=== PATIENT | female | born 1950 | race Caucasian/White ===

== ENCOUNTER 2021-03-03 15:15 | Outpatient (CLI) | payer MEDICARE, OTHER, SELFPAY ==
--- NOTE | 2021-03-03 15:53 | CT_ITS ---
WS: [id number] CT LUMBAR SPINE, noncontrast. HISTORY: PARESTHESIA, WEAKNESS, SYNCOPE TECHNIQUE: Contiguous 2.5 mm axial imaging are performed. Sagittal and coronal reformats are submitte d and reviewed. All CT scans at [facility] use at least one of these dose optimization techni ques: automated exposure control; mA and/or kV adjustment per patient size (includes targeted exams w here dose is matched to clinical indication); or iterative reconstruction. IV contrast: None DLP: 1933.14 mGycm COMPARISON: None available. Posterior lumbar alignment is normal. No fractures. Pedicles are intact. Small hypertrophic osteophyt es along the endplates. L1-2: Mild annular disc bulge with no stenosis. L2-3: Moderate annular disc bulging with mild facet joint arthritis. No stenosis. L3-4: Mild annular disc bulging with encroachment upon the ventral thecal sac and mild facet arthriti s. No high-grade stenosis. L4-5: Mild annular disc bulging with encroachment upon the ventral thecal sac. Mild ligamentum flavum hypertrophy with moderate bilateral facet joint arthritis. Mild central and bilateral subarticular r ecess encroachment. L5-S1: Mild annular disc bulge with a focal central disc protrusion. Disc is contacting the S1 nerve roots bilaterally but no displacement. Mild bilateral subarticular recess stenosis. No foraminal sten osis. 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 CT/CT lumbar spine wo con* [id number] IMPRESSION: 1. No high-grade central or foraminal stenosis. 2. No lumbar spine fracture. 3. Mild encroachment upon the S1 nerve roots bilaterally by disc disease. 4. Mild central and bilateral subarticular recess encroachment at L4-5. 5. Moderate facet joint arthritis at L4-5 with mild at L2-3 and L3-4.
--- NOTE | 2021-03-03 15:53 | CT_ITS ---
WS: [id number] CT CERVICAL SPINE HISTORY: PARESTHESIA, WEAKNESS, SYNCOPE TECHNIQUE: Contiguous 2.5 mm axial imaging performed through the entire cervical spine. Sagittal and coronal reformats also performed. All CT scans at [facility] use at least one of these dose o ptimization techniques: automated exposure control; mA and/or kV adjustment per patient size (include s targeted exams where dose is matched to clinical indication); or iterative reconstruction. DLP: 1293.64 mGycm COMPARISON: None available. Posterior cervical alignment is normal. No fractures or marrow edema. Very mild disc space narrowing at C5-6 with osteophytes extending anterior and posterior from the vertebral bodies. Facet joints are moderately narrowed throughout. C2-C3: Mild osteophytic ridging with no stenosis. Moderate facet joint arthritis. C3-C4: Very minimal central disc protrusion. Moderate bilateral facet joint arthritis. Very mild fora tracy narrowing. C4-C5: Very shallow central disc protrusion. Moderate to severe RIGHT and mild LEFT facet joint arthr itis. Moderate RIGHT foraminal stenosis. C5-C6: Diffuse osteophytic ridging with mild encroachment into the foramina. Moderate bilateral facet joint arthritis. Mild foraminal stenosis. C6-C7: RIGHT proximal foraminal osteophytes causing mild encroachment into the foramina. No high-grad e stenosis. Mild facet joint arthritis. C7-T1: Mild facet joint arthritis. No stenosis. Soft tissues are normal. Lung apices are clear. CT/CT cervical spin wo con* [id number] IMPRESSION: 1. No severe high-grade stenosis or fracture of cervical spine. 2. Multilevel mild to moderate facet joint arthritis. 3. Moderate RIGHT foraminal stenosis at C4-5. Moderate to severe RIGHT and mil d LEFT facet joint arthritis at C4-5. 4. Moderate bilateral facet joint arthritis at C3-4 and C5-6.
--- NOTE | 2021-03-03 15:53 | CT_ITS ---
WS: [id number] CT CHEST WITHOUT INTRAVENOUS CONTRAST HISTORY: PARESTHESIA, WEAKNESS, SYNCOPE TECHNIQUE: Contiguous 5 mm axial imaging performed on the thorax. Coronal and sagittal reformats are submitted. All CT scans at [facility] use at least one of these dose optimization techniques: automated exposure control; mA and/or kV adjustment per patient size (includes targeted exams where dose is matched to clinical indication); or iterative reconstruction. CONTRAST: None DLP: 639.28 mGycm COMPARISON: None available. Lungs and central airway: Marked pulmonary hyperexpansion. Focal area of subtle groundglass attenuati on measuring 1.6 cm RIGHT upper lobe. Bronchial wall thickening with bronchiectasis along the medial inferior RIGHT upper lobe. There is additional mild scar formation in the RIGHT middle lobe and lingu la. Pleura: Normal. No pleural effusion. Heart and pericardium: Mild enlargement of the heart. No effusion. Mediastinum and eduardo: On this unenhanced examination no enlarged lymph nodes are identified. There ar e a few scattered lymph nodes with the largest measuring 7 mm along the inferior RIGHT paratracheal l ocation. Vessels: Mild atherosclerosis aorta. Pulmonary artery size is slightly enlarged. Chest wall and lower neck: No soft tissue masses. Upper abdomen: A few scattered granulomata within the spleen. No adrenal mass. Osseous structures: Mild increase in thoracic kyphosis. Mild anterior wedging of T8. No destructive b one lesions. CT/CT chest wo con [id number] IMPRESSION: 1. Marked pulmonary hypertension and emphysema. 2. RIGHT upper lobe focal 1.6 cm area of groundglass attenuation. Very nonspec ific but may represent early adenocarcinoma variant. Recommend follow-up chest CT in 6-12 months. 3. Additional bronchiectasis and bronchial wall thickening medial RIGHT upper lobe. 4. Mild atherosclerosis aorta and mild pulmonary hypertension.
== END 2021-03-03 15:16 | disposition home or self-care (01) ==
PROVIDERS: Visit Provider Family Medicine
DX: R20.9 Unspecified disturbances of skin sensation (principal); R53.1 Weakness; R55 Syncope and collapse; M47.816 Spondylosis without myelopathy or radiculopathy, lumbar region; I27.20 Pulmonary hypertension, unspecified; J43.9 Emphysema, unspecified; J47.9 Bronchiectasis, uncomplicated; I70.0 Atherosclerosis of aorta; M47.812 Spondylosis without myelopathy or radiculopathy, cervical region; M48.02 Spinal stenosis, cervical region
CPT/HCPCS: 71250; 72125; 72131

== ENCOUNTER 2021-04-22 09:17 | Outpatient (CLI) | payer MEDICARE, OTHER, SELFPAY ==
--- NOTE | 2021-04-22 09:30 | MR_ITS ---
WS: [id number] MRI HEAD WITH CONTRAST TECHNIQUE: Sagittal T1, T2 axial, T2 axial FLAIR, axial susceptibility weighted imaging, axial diffus ion weighted images, and coronal T2 images were obtained. Pre and post-T1 axial and post T1 coronal i mages. ADC and FSPGR images. CLINICAL INFORMATION: HEADACHE, UNSPECIFIED; LIGHTHEADEDNESS; SYNCOPE COMPARISON: CT 2009 FINDINGS: No evidence of restricted diffusion to suggest acute ischemia. Ventricular system and basal cisterns are patent. Moderate patchy supratentorial white matter changes compatible with small vessel disease in a patient this age. Mild parenchymal volume loss. Normal posterior fossa. Normal vascular flow voids at the skull base. No extra-axial fluid collection s. No evidence of mass or mass effect. Paranasal sinuses and mastoid air cells are well aerated. No h emosiderin on the susceptibly weighted images. Normal optic chiasm and pituitary infundibulum. Mild s ymmetric atrophy temporal lobes and hippocampal formations. No abnormal intracranial enhancement. Normal dural venous sinuses. MR/MR head wo/w con [id number] IMPRESSION: 1. No evidence of restricted diffusion to suggest acute ischemia. 2. Moderate small vessel changes with mild parenchymal volume loss. 3. Normal optic chiasm and pituitary infundibulum. 4. No hemosiderin on susceptibly weighted images. 5. No abnormal intracranial enhancement. 6. No other significant findings.
[2021-04-22] MEDS: gadobenate dimeglumine 20 mL vial IV (10:39)
== END 2021-04-22 09:18 | disposition home or self-care (01) ==
PROVIDERS: Visit Provider Family Medicine
DX: R51.9 Headache, unspecified (principal); R42 Dizziness and giddiness; R55 Syncope and collapse
CPT/HCPCS: 70553; A9577

== ENCOUNTER 2021-05-15 14:33 | Outpatient (CLI) | payer MEDICARE, OTHER, SELFPAY ==
--- NOTE | 2021-05-15 14:41 | USCV_ITS ---
Keira Ayon Age: 70 Gender: F : 1950 Exam Date: 05/15/2021 15:06 Ordering Phys: Abhinav Ac MD Technologist: JOSE Exam Location: [facility] [place] Indication: pulmonary hypertension/ syncope BP: / HR: Rhythm: Sinus Technical Quality: Adequate MEASUREMENTS (Male / Female) Normal Values FINDINGS Left Ventricle Normal left ventricular size and systolic function, EF 59%.no regional wall motion abnormalities. Mild left ventricular hypertrophy. Right Ventricle The right ventricle is normal in size and function. Right Atrium Mildly increased right atrial size. Left Atrium Mildly increased left atrial size. Mitral Valve Thickened mitral valve. Mild mitral valve regurgitation. Aortic Valve Thickened aortic valve. Trace aortic valve regurgitation. Tricuspid Valve Estimated pulmonary artery peak systolic pressure 35 mmHg.mild- to-moderate tricuspid valve regurgitation. Pulmonic Valve Trace pulmonary valve regurgitation. Pericardium No pericardial effusion. Aorta Normal ascending aorta dimension. CONCLUSIONS Normal left ventricular size and systolic function, EF 59%.no regional wall motion abnormalities. Mild left ventricular hypertrophy. Mild biatrial enlargement. Thickened mitral valve with mild mitral regurgitation Thickened aortic valve with a trace of aortic regurgitation Mild to moderate tricuspid regurgitation Estimated pulmonary artery peak systolic pressure 35 mmHg. Trace pulmonary valve regurgitation. There is no pericardial effusion. There are no intracardiac masses. No previous study is available for comparison. Dr Jc Esquivel MD FAC (Electronically Signed) Final Date: 15 May 2021 20:56 S
== END 2021-05-15 14:34 | disposition home or self-care (01) ==
PROVIDERS: Visit Provider Family Medicine
DX: R55 Syncope and collapse (principal); I27.20 Pulmonary hypertension, unspecified; I08.3 Combined rheumatic disorders of mitral, aortic and tricuspid valves
CPT/HCPCS: 93306

== ENCOUNTER → 2021-06-19 13:22 | Outpatient (BNVA) | payer MEDICARE, OTHER, SELFPAY | PROVIDERS: Visit Provider Family Medicine | DX: Z20.822 Contact with and (suspected) exposure to COVID-19 (principal); Z01.818 Encounter for other preprocedural examination | CPT/HCPCS: 87635 ==

== ENCOUNTER 2021-06-24 13:02 | Outpatient (CLI) | payer MEDICARE, OTHER, SELFPAY ==
--- NOTE | 2021-06-24 13:52 | PFTS_ITS ---
Date of Study:06/24/21 Date of Dictation:02/2022 MECHANICS: Prebronchodilator forced vital capacity (FVC) is normal. Prebronchodilator forced expiratory volume in one second (FEV1) is normal FEV1/FVC is reduced. There is no prebronchodilator study. FLOW VOLUME LOOP: Normal. LUNG VOLUMES: Total lung capacity (TLC) is normal. Residual volume (RV) is normal. DIFFUSING CAPACITY FOR CARBON MONOXIDE: Mildly reduced 69% . INTERPRETATION: The prebronchodilator spirometry is consistent with mild obstruction.? Lung volumes are normal.? Gas transfer is mildly reduced.? Reduced FEV1/FVC with normal FEV1 and mildly ranges gas transfer suggestive of obstructive ventilatory disease mild COPD. correlate clinically. MTDD
== END 2021-06-24 13:03 | disposition home or self-care (01) ==
PROVIDERS: Visit Provider Family Medicine
DX: R91.8 Other nonspecific abnormal finding of lung field (principal)
CPT/HCPCS: 94010; 94726; 94729

== ENCOUNTER 2021-07-31 14:54 | Outpatient (CLI) | payer MEDICARE, OTHER, SELFPAY ==
--- NOTE | 2021-07-31 15:03 | USCV_ITS ---
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 Dr Jc Esquivel MD FACC (Electronically Signed) Final Date: 01 August 2021 00:07 S
== END 2021-07-31 14:55 | disposition home or self-care (01) ==
PROVIDERS: Visit Provider Family Medicine
DX: I73.9 Peripheral vascular disease, unspecified (principal)
CPT/HCPCS: 93922

== ENCOUNTER → 2021-10-08 13:29 | Outpatient (BNVA) | payer MEDICARE, OTHER, SELFPAY | PROVIDERS: PCP Family Medicine; Referring Provider Family Medicine; Visit Provider Specialist | DX: G56.03 Carpal tunnel syndrome, bilateral upper limbs (principal); G56.23 Lesion of ulnar nerve, bilateral upper limbs; G62.89 Other specified polyneuropathies | CPT/HCPCS: 95913 ==

== ENCOUNTER → 2021-11-13 11:12 | Outpatient (BNVA) | payer MEDICARE, OTHER, SELFPAY | PROVIDERS: PCP Family Medicine; Referring Provider Family Medicine; Visit Provider Specialist | DX: G62.89 Other specified polyneuropathies (principal); R94.6 Abnormal results of thyroid function studies; R53.1 Weakness; G56.03 Carpal tunnel syndrome, bilateral upper limbs; G56.23 Lesion of ulnar nerve, bilateral upper limbs; I95.1 Orthostatic hypotension | CPT/HCPCS: 36415; 82607; 84436; 84443; 86334; 95861; 99204; 99205 ==

== ENCOUNTER 2021-12-05 16:24 | Outpatient (CLI) | payer MEDICARE, OTHER, SELFPAY ==
--- NOTE | 2021-12-05 16:30 | US_ITS ---
WS: [id number] THYROID ULTRASOUND HISTORY: ? Thyroiditis. COMPARISON: None available. Right lobe: 1.9 cm x 2.4 cm x 4.7 cm (w x ap x l). Volume: 11.6 cm3. Moderately enlarged very heterogeneous lobulated thyroid gland. There are a few scattered cystic nodu les. The largest in the mid gland measures 1.1 x 0.9 x 1.1 cm. There is diffuse increased vascularity throughout the gland. No echogenic foci. No adjacent lymph nodes. Left lobe: 1.6 cm x 2.3 cm x 4.2 cm (w x ap x l). Volume: 7.9 cm3. Moderately enlarged very heterogeneous lobulated gland. There is diffuse increased vascularity. No no dule. No adjacent lymph nodes. Isthmus: 0.3 cm. US/US thyroid [id number] IMPRESSION: 1. Enlarged heterogeneous gland with increased vascularity. Suspect thyroiditi s based upon increased vascularity. 2. There is no dominant suspicious nodule to be targeted for biopsy at this [place].
== END 2021-12-05 16:25 | disposition home or self-care (01) ==
PROVIDERS: PCP Family Medicine; Visit Provider Family Medicine
DX: E06.9 Thyroiditis, unspecified (principal); E03.9 Hypothyroidism, unspecified
CPT/HCPCS: 76536; 84432; 84439; 84443; 84481; 86140; 86800

== ENCOUNTER 2021-12-26 14:09 | Inpatient (IN) | payer MEDICARE, OTHER, SELFPAY ==
[2021-12-26] VITALS (9 sets, daily range): BP systolic 63–143; BP diastolic 47–88; PULSE 57–107; RESP 16–17; TEMP 36.6–36.9; O2SAT 92–95; BMI 20.3
--- NOTE | 2021-12-26 14:17 | W.ED.SYNCOPE ---
HPI - Syncope General: Chief Complaint: Syncope Stated Complaint: SYNCOPAL EPISODE/ HYPOTENSION Time Seen by Provider: 12/26/21 14:17 Source: patient Mode of arrival: EMS Limitations: no limitations History of Present Illness: 71-year-old female presents emergency room via EMS after near syncopal episode. Patient reports she has had these episodes multiple times in the past. She has a known history of chronic anemia peripheral neuropathy and acquired hypothyroidism. She is currently being treated. She is on midodrine for recurrent orthostasis. She had a TSH that was 259 for which she was started on 50 mcg of levothyroxine. She today she had gotten up from bed and then stood and started walking to answer her door. She medialmost with the door got very lightheaded and dizzy and sat down at a table. She said after several minutes her symptoms resolved. She is asymptomatic now and she is feeling much better. She denies any chest pain abdominal pain shortness of breath no dysuria urgency or frequency. MD complaint: felt faint and almost passed out Onset (ago): minute(s) Prodromal symptoms: lightheaded Witnessed: No Context: getting out of bed and standing up Injuries sustained associated with event: none Associated symptoms: Reports lightheadedness; Deny abdominal pain, chest pain, fever(s), headache(s), nausea, short of breath, vertigo or weakness Treatments prior to arrival: none Review of Systems Const: Denies: fever(s), chills, fatigue or malaise ENMT: Denies: throat pain, ear or mastoid pain, nasal discharge or nasal congestion Card: Reports: lightheadedness; Denies: chest pain Resp: Denies: dyspnea, productive cough or non-productive cough GI: Denies: abdominal pain or nausea : Denies: flank pain, difficulty voiding, dysuria, urinary frequency or urinary urgency Skin/Breast: Denies: rash or pruritus Neuro: Denies: headache(s) or vertigo PFSH ED PFSH: Medical History Achalasia Carpal tunnel syndrome, bilateral upper limbs Depression Hypothyroidism (acquired) Lung nodule Numbness and tingling Orthostatic hypotension Peripheral neuropathy Ulnar neuropathy of both upper extremities Surgical History History of tonsillectomy Family History Other CAD (coronary artery disease) Social History Smoking and tobacco status: never smoked Alcohol intake: never History of recent travel: No Physical Exam Const: GENERAL APPEARANCE: cooperative and comfortable ORIENTATION/CONSCIOUSNESS: Yes awake, Yes oriented to person, Yes oriented to place and Yes oriented to time HENMT: COMMON NORMALS: normocephalic, atraumatic and hearing grossly normal bilaterally HEAD & SCALP: normocephalic and atraumatic Resp: COMMON NORMALS: normal respiratory effort, No retractions, No use of accessory muscles and clear to auscultation bilaterally AUSCULTATION: clear to auscultation bilaterally Cardio: COMMON NORMALS: regular rate, regular rhythm and No murmurs present (Cardio) RATE: regular rate RHYTHM: regular rhythm GI: COMMON NORMALS: Soft to palpation and No hepatosplenomegaly present AUSCULTATION: Yes normoactive bowel sounds PALPATION: Yes Soft to palpation, No Tenderness to palpation present (GI), No Guarding due to palpation present (GI) and Yes No hepatosplenomegaly present Extremity: COMMON NORMALS: normal to inspection, capillary refill normal, no clubbing, cyanosis or edema, no calf tenderness and no pedal edema Neuro: SENSORIUM/ORIENTATION: Yes oriented to person, Yes oriented to place and Yes oriented to time Skin: COMMON NORMALS: no rashes or lesions noted GENERAL SKIN EXAM: no rashes or lesions noted Course Vital Signs: Vital signs: Vital Signs Temperature 98.1 F 12/30/21 16:25 Pulse Rate 53 L 12/30/21 16:25 Respiratory Rate 16 12/30/21 16:25 Blood Pressure 158/89 12/30/21 16:25 Pulse Oximetry 97 12/30/21 16:25 Oxygen Delivery Me thod 12/30/21 12:00 Oxygen Flow Rate 3 12/30/21 12:00 MDM - Syncope Medical Decision Making Severe symptomatic orthostatic hypotension she goes from blood pressure 136/80 to 63/47 with no change in pulse was going from lying to standing. This was after she was given fluids. She is no longer taking the midodrine. Discussed with hospitalist will place on observation. Medical Records I reviewed the patient's medical records. Lab Data I reviewed the patient's lab results. : 12/30/21 02:06 12/30/21 02:06 Radiology Impressions Chest X-Ray 12/28/21 08:20 IMPRESSION: Minimal left basilar atelectasis. No confluent infiltrates in the lungs. Chest CTA 12/28/21 12:13 IMPRESSION: 1. Comparison CT 03/03/2021. 2. No acute PE. 3. Mild cardiomegaly with coronary calcification. Probable passive hepatic congestion/right heart-tricuspid dysfunction as above. 4. Infrahilar/posterior basilar bilateral consolidations and small pleural effusions. Several new ill-defined non round ground-glass opacities are also present as described.Imaging features can be seen with COVID-19 pneumonia, though are nonspecific and can occur with a variety of infectious and noninfectious processes. (Reference: Derian) 5. Mild nonspecific right hilar adenopathy. This may be reactive. REFERENCES: Derian Marion, et al., Radiological Society of [place] Expert Consensus Statement on Reporting Chest CT Findings Related to COVID-19. Endorsed by the Society of Thoracic Radiology, the [employer], and RSNA. Published July 12, 2019. Laboratory Results WBC 7.1 10^3/uL (4.0-10.0) 12/27/21 04:20 RBC 3.18 10^6/uL (4.1-5.3) L 12/27/21 04:20 Hgb 10.3 g/dL (11.5-15.3) L 12/27/21 04:20 Hct 31.5 % (37.0-47.0) L 12/27/21 04:20 MCV 99.1 fl (81-99) H 12/27/21 04:20 MCH 32.4 pg (28.0-34.0) 12/27/21 04:20 MCHC 32.7 g/dL (30.0-36.0) 12/27/21 04:20 RDW 13.8 % (12.1-15.1) 12/27/21 04:20 Plt Count 112 10^3/cmm (130-400) L 12/27/21 04:20 MPV 10.3 fL (7.4-10.4) 12/27/21 04:20 Neut % (Auto) 89.7 % 12/27/21 04:20 Lymph % (Auto) 6.2 % 12/27/21 04:20 [place] % (Auto) 3.4 % 12/27/21 04:20 Eos % (Auto) 0.0 % 12/27/21 04:20 Baso % (Auto) 0.1 % 12/27/21 04:20 Neut # (Auto) 6.38 10^3/uL (1.8-7.7) 12/27/21 04:20 Lymph # (Auto) 0.4 10^3/uL (0.8-4.8) L 12/27/21 04:20 [place] # (Auto) 0.2 10^3/uL (0.2-0.9) 12/27/21 04:20 Eos # (Auto) 0.0 10^3/uL (0.0-0.8) 12/27/21 04:20 Baso # (Auto) 0.0 10^3/uL (0.0-0.1) 12/27/21 04:20 Nucleated RBC % (auto) 0 % 12/27/21 04:20 Nucleated RBCs # 0.0 /100WBC 12/27/21 04:20 Sodium 137 mmol/L (136-145) 12/27/21 04:20 Potassium 3.7 mmol/L (3.5-5.1) 12/27/21 04:20 Chloride 104 mmol/L (98-107) 12/27/21 04:20 Carbon Dioxide 23 mmol/L (22-29) 12/27/21 04:20 Anion Gap 13.7 (5-19) 12/27/21 04:20 BUN 18 mg/dL (8-23) 12/27/21 04:20 Creatinine 0.9 mg/dL (0.5-0.9) 12/27/21 04:20 GFR Calculation 61.9 mL/min (90-130) L 12/27/21 04:20 Glucose 133 mg/dL (65-115) H 12/27/21 04:20 Calculated Osmolality 288 mOsm/kg (285-295) 12/27/21 04:20 Calcium 8.1 mg/dL (8.5-10.5) L 12/27/21 04:20 Magnesium 1.7 mg/dL (1.7-2.3) 12/27/21 04:20 Iron 11 ug/dL (37-145) L 12/26/21 14:50 TIBC 259 mcg/dl 12/26/21 14:50 % Saturation 4.2 % (20-50) L 12/26/21 14:50 Unsat Iron Binding 248 ug/dL (112-347) 12/26/21 14:50 Ferritin 280 ng/mL (15-150) H 12/26/21 14:50 Total Bilirubin 0.5 mg/dL (0.15-1.2) 12/27/21 04:20 AST 44 U/L (0-32) H 12/27/21 04:20 ALT 25 U/L (0-33) 12/27/21 04:20 Alkaline Phosphatase 54 U/L (35-105) 12/27/21 04:20 Troponin T Baseline 19 ng/L (0-10) H 12/26/21 14:50 Troponin T 120 Minute 19.43 ng/L (0-10) H 12/26/21 16:54 Delta Troponin T 0.43 ABS# (0-10) 12/26/21 16:54 Troponin T Hi Sens 6Hr 20.39 ng/L (0-10) H 12/26/21 20:50 Troponin T Hi Sens 6Hr Delta 1.39 ng/L (0-12) 12/26/21 20:50 NT-Pro-B Natriuret Pep 1299 pg/mL (0-125) H 12/28/21 04:51 Total Protein 6.4 g/dL (6.6-8.7) L 12/27/21 04:20 Albumin 3.4 g/dL (3.5-5.2) L 12/27/21 04:20 Globulin 3.0 g/dL (1.3-4.6) 12/27/21 04:20 Vitamin B12 1052 pg/mL (232-1245) 12/26/21 14:50 Folate 6.1 ng/mL (4.8-37.3) 12/26/21 14:50 TSH 91.13 uIU/mL (0.27-4.20) H 12/28/21 04:51 Free T4 0.39 ng/dL (0.82-1.77) L 12/28/21 04:51 Random Cortisol 23.18 ug/dL (2.47-19.5) H 12/26/21 14:50 Urine Color Yellow (Yellow) 12/26/21 16:00 Urine Appearance Clear (CLEAR) 12/26/21 16:00 Urine pH 5 (5-7) 12/26/21 16:00 Ur Specific [place] 1.010 (1.005-1.030) 12/26/21 16:00 Urine Protein Neg (Negative) 12/26/21 16:00 Urine Glucose (UA) Norm (Normal) 12/26/21 16:00 Urine Ketones 1+ (Negative) H 12/26/21 16:00 Urine Blood 2+ (Negative) H 12/26/21 16:00 Urine Nitrate Positive (Negative) H 12/26/21 16:00 Urine Bilirubin Neg (Negative) 12/26/21 16:00 Urine Urobilinogen Norm mg/dL (Negative) 12/26/21 16:00 Ur Leukocyte Esterase 2+ (Negative) H 12/26/21 16:00 Urine RBC 0-4 /hpf (0-2) H 12/26/21 16:00 Urine WBC 10-15 /hpf (0-5) H 12/26/21 16:00 Ur Squamous Epith Cells 0-4 /hpf (0-5) H 12/26/21 16:00 Amorphous Sediment Not Reportable 12/26/21 16:00 Urine Bacteria 3+ /hpf (NONE) H 12/26/21 16:00 Coronavirus 229E (PCR) Not detected (NOT DETECT) 12/28/21 08:30 SARS-CoV-2 (PCR) Detected (NOT DETECT) A 12/28/21 08:30 Discharge Plan Discharge Patient Disposition: Placed in Observation Admit Provider: Harjeet Vega Clinical Impression: Syncope due to orthostatic hypotension, Hypothyroidism (acquired), Vasovagal syncope Discharge Diet: Cardiac Discharge Activity: Increase activity as tolerated, Limit activity as instructed and Oxygen as instructed Coding Level of Care Code ED Care Analyst for Chg Fwd Exam Detailed
--- NOTE | 2021-12-26 14:18 | ECG_ITS ---
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 Measurements Intervals [place] Rate: 73 P: 88 DC: 167 QRS: 39 QRSD: 107 T: 66 QT: 392 QTc: 432 Interpretive Statements SINUS RHYTHM WITH SINUS ARRHYTHMIA INCOMPLETE RIGHT BUNDLE BRANCH BLOCK [90+ ms QRS DURATION, TERMINAL R IN V1/V2, 40+ ms S IN I/aVL/V4/V5/V6] NONSPECIFIC T-WAVE ABNORMALITY No previous ECG available for comparison Electronically Signed On 12-26-2021 14:26:56 CDT by Vincent Velarde M.D. [email or web address]
[2021-12-26 14:56] LABS: Basophils % 0.2 %; Hematocrit 29.9 % (37.0-47.0); Hemoglobin 9.8 g/dL (11.5-15.3); Lymphocytes # 0.4 10^3/uL (0.8-4.8); Lymphocytes % 7.1 %; Mean Corpuscular HGB Conc 32.8 g/dL (30.0-36.0); Mean Corpuscular Hemoglobin 32.9 pg (28.0-34.0); Mean Corpuscular Volume 100.3 fl (81-99); Mean Platelet Volume 9.5 fL (7.4-10.4); Monocytes # 0.4 10^3/uL (0.2-0.9); Monocytes % 6.7 %; Neutrophils % 85.6 %; Nucleated Red Blood Cells % 0 %; Platelet Count 99 10^3/cmm (130-400); Red Blood Count 2.98 10^6/uL (4.1-5.3); Red Cell Distribution Width 13.8 % (12.1-15.1); White Blood Count 5.4 10^3/uL (4.0-10.0)
[2021-12-26 15:15] LABS: Troponin(5th) Baseline 19 ng/L (0-10)
[2021-12-26 15:16] LABS: Alanine Aminotransferase 24 U/L (0-33); Albumin Level 3.6 g/dL (3.5-5.2); Alkaline Phosphatase 49 U/L (35-105); Anion Gap 16.8 (5-19); Aspartate Amino Transferase 47 U/L (0-32); Blood Urea Nitrogen 20 mg/dL (8-23); Calcium 8.4 mg/dL (8.5-10.5); Carbon Dioxide 22 mmol/L (22-29); Chloride 100 mmol/L (98-107); Globulin 2.8 g/dL (1.3-4.6); Glomerular Filtration Rate 49.1 mL/min (90-130); Glucose 97 mg/dL (65-115); Osmolality Calculated 283 mOsm/kg (285-295); Potassium 3.8 mmol/L (3.5-5.1); Sodium 135 mmol/L (136-145); Total Bilirubin 0.6 mg/dL (0.15-1.2); Total Protein 6.4 g/dL (6.6-8.7)
[2021-12-26 15:18] LABS: Slide Review Slide Review Perform
[2021-12-26 16:15] LABS: Bilirubin Urine Neg (Negative); Blood Urine 2+ (Negative); Glucose Urine UA Norm (Normal); Ketones Urine 1+ (Negative); Nitrate Urine Positive (Negative); Protein Urine Neg (Negative); Urine Appearance Clear (CLEAR); Urine Color Yellow (Yellow); pH Urine 5 (5-7)
[2021-12-26 16:16] LABS: Add Urine Microscopic? YES; Leukocyte Esterase Urine 2+ (Negative); Urobilinogen Urine Norm (Negative)
[2021-12-26 16:26] LABS: Add Urine Culture? Yes; Bacteria Urine 3+ /hpf; RBC Urine 0-4 /hpf (0-2); Squamous Epithelial Cell Urine 0-4 /hpf (0-5)
[2021-12-26] MEDS: cefTRIAXone 1,000 MG in sodium chloride 0.9% (plus) 50 ML 100 MG IV (17:04)
--- NOTE | 2021-12-26 17:16 | PM.HP ---
Providers/Chief Complaint Primary Care Provider: Abhinav Ac MD Chief Complaint: SYNCOPAL EPISODE/ HYPOTENSION History of Present Illness Keira Ayon is a 71 year old female who reports she has had occasional syncopal episodes over the last 2 years. She had 1 witnessed today. She was on her way to the door when family member witnessed her faint, with still for approximately 1 minute, then crawled over the door and opened it. Patient reports she remembers some of this, the feeling that her legs were very heavy prior to her fainting. She reports that is usually the case. No chest pain or shortness of breath. She had recently been diagnosed with hypothyroidism, for which she was to start thyroid hormone but only started it 2 to 3 days ago. She believes she may not have been drinking well lately. She reports some memory trouble lately. Has some constipation. Denies any swelling. Review of Systems General: Reports: 10 or more systems reviewed and unremarkable except in HPI and below Const: Reports: fatigue and malaise; Denies: fever(s) or chills Eyes: Denies: change in vision ENMT: Denies: throat pain Card: Denies: chest pain Resp: Denies: dyspnea GI: Reports: constipation; Denies: abdominal pain, hematochezia or melena : Denies: flank pain Musc: Denies: neck pain Skin/Breast: Denies: rash Neuro: Denies: headache(s) Psych: Denies: anxiety or depression Endo: Denies: polyuria Michael/Lymph: Denies: easy bruising All/Imm: Denies: urticaria Medications/Allergies Home Medications Medication Instructions Recorded Confirmed Last Taken Type duloxetine 20 mg capsule,delayed 20 mg PO DAILY 10/08/21 12/26/21 12/26/21 History release (Cymbalta) midodrine 5 mg tablet 5 mg PO BID 90 days #180 tabs 11/13/21 12/26/21 Unknown Rx levothyroxine 50 mcg tablet 50 mcg PO DAILY 90 days #90 tabs 12/17/21 12/26/21 12/26/21 Rx Allergies Allergy/AdvReac Type Severity Reaction Status Date / Time No Known Allergies Allergy Verified 12/26/21 15:17 PFSH Acute PFSH: Medical History Achalasia Carpal tunnel syndrome, bilateral upper limbs Depression Hypothyroidism (acquired) Lung nodule Numbness and tingling Orthostatic hypotension Peripheral neuropathy Ulnar neuropathy of both upper extremities Surgical History (Updated 12/26/21 @ 17:54 by Harjeet Vega MD) History of tonsillectomy Family History (Updated 12/26/21 @ 17:54 by Harjeet Vega MD) Other CAD (coronary artery disease) Social History Smoking and tobacco status: never smoked Alcohol intake: never History of recent travel: No Other [facility] information: Supplemental [facility] Information: History of esophageal myotomy Vitals/I&O/Wt Last Vital Signs Temp 97.8 F 12/26/21 17:00 Pulse 68 12/26/21 17:00 Resp 16 12/26/21 17:00 BP 134/88 12/26/21 17:00 Pulse Ox 95 12/26/21 17:00 O2 Del Method 12/26/21 17:00 O2 Flow Rate 2 12/26/21 17:00 Weight last 48 hrs Weight 58.967 kg Physical Exam Narrative: General exam demonstrates a white female, no distress, with adequate blood pressure laying down. Upon standing her systolic blood pressure was in the 60s according to the emergency department staff. Heart rate did not increase. HEENT: Atraumatic and normocephalic. Pupils equally round. Oropharynx clear. Neck is supple no lymphadenopathy or thyromegaly Cardiovascular regular rate and rhythm without murmur, no S3 or S4 Lungs clear no wheezing or crackles Abdomen is soft nontender positive bowel sounds. No obvious organomegaly exams deferred Extremities no cyanosis clubbing or edema, cap refill brisk Skin no rash Neuro no obvious focal deficits. Data : 12/26/21 14:50 12/26/21 14:50 Other Labs: EKG demonstrates normal sinus rhythm, normal axis, incomplete right bundle. Echocardiogram April 2021 demonstrated an EF of 59%, mild LVH, mitral regurgitation, tricuspid regurgitation. Some atrial enlargement is noted. Calcium 8.4 Albumin 3.6 Urinalysis with 10-15 white blood cells, 2+ leukocyte esterase and 3+ bacteria TSH November 18 was 259, with corresponding low free T4 and free T3 levels. A thyroglobulin level was also done which was not measurable. She has a thyroid ultrasound suspicious for thyroiditis. MRI head in April no acute findings. A&P Assessment and plan (1) Hypothyroidism (acquired): Patient appears to have profound hypothyroidism, impacting her quality of life. She has some constipation, peripheral neuropathy, orthostatic hypotension, anemia with macrocytosis I think it is likely that her hypothyroidism may be contributing to her orthostatic hypotension. At this point she has only been on thyroid hormone supplementation, 50 mcg of Synthroid Because she is essentially athyroid weight-based dose is approximately 100 mcg. Will initiate this now orally as she is not in myxedema coma. Measure free T4 tomorrow morning. I discussed this briefly with endocrinology, who would like to follow her up as an outpatient after discharge. Status: Acute (2) Syncope due to orthostatic hypotension: Likely secondary to hypothyroidism. Hydrate Hydrocortisone 100 mg IV x1 pending result of random cortisol Status: Acute (3) UTI (urinary tract infection): Urine culture Rocephin 1 g IV every 24 hours Status: Acute (4) Anemia: Macrocytic. Likely related to hypothyroidism. Associated with low platelets. Will need monitored as an outpatient. Anemia panel will be checked. Status: Acute Plan Other medical problems as outlined in past medical history Full code Lovenox will suffice for DVT prophylaxis Attestations Medical Necessity Statement*: At this point may require less than 2 midnight stay if orthostatic hypotension improves. Coding Level of Care Code Acute Certified Registered Locksmith for Meghan Love Diagnoses Hypothyroidism (acquired) E03.9 Syncope due to orthostatic hypotension I95.1 UTI (urinary tract infection) N39.0 Anemia D64.9
--- NOTE | 2021-12-26 17:25 | ECG_ITS ---
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 Measurements Intervals [place] Rate: 62 P: 90 NH: 175 QRS: 48 QRSD: 99 T: 66 QT: 399 QTc: 408 Interpretive Statements SINUS RHYTHM NONSPECIFIC T-WAVE ABNORMALITY Compared to ECG 12/26/2021 14:25:59 Sinus arrhythmia no longer present Incomplete right bundle-branch block no longer present T-wave abnormality still present Electronically Signed On 12-28-2021 13:34:58 CDT by Vincent Velarde M.D. [email or web address] [email or web address].[email or web address])/[id number]
[2021-12-26 18:02] LABS: Ferritin 280 ng/mL (15-150); Iron 11 ug/dL (37-145); Percent Saturation 4.2 % (20-50); Thyroid Stimulating Hormone 76.02 uIU/mL (0.27-4.20); Total Iron Binding Capacity 259 mcg/dl; Unsaturated Iron Binding 248 ug/dL (112-347); Vitamin B12 1052 pg/mL (232-1245)
[2021-12-26 18:06] LABS: Troponin 5 2HR 19.43 ng/L (0-10)
[2021-12-26 18:10] LABS: Troponin 5 2HR Delta 0.43 ABS# (0-10)
[2021-12-26 18:42] LABS: Cortisol Random 23.18 ug/dL (2.47-19.5)
[2021-12-26 18:48] LABS: Folate Level 6.1 ng/mL (4.8-37.3)
[2021-12-26] MEDS: hydrocortisone 100 mg/2 mL SDV IVP (18:58)
--- NOTE | 2021-12-26 18:59 | PC.NURSE ---
Report called to Med surg nurse at 1849. Patient would like to finish her dinner here in ER prior to be taken upstairs. Report also given to oncoming ER nurse, Ania; pt will be transmitted after she finishes eating. Family in room updated.
--- NOTE | 2021-12-26 20:18 | ECG_ITS ---
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 Measurements Intervals [place] Rate: 56 P: 61 MS: 155 QRS: 49 QRSD: 97 T: 66 QT: 419 QTc: 407 Interpretive Statements SINUS BRADYCARDIA ANTEROSEPTAL MYOCARDIAL INFARCTION , OF INDETERMINATE AGE [40+ ms Q WAVE IN V1-V4] Compared to ECG 12/26/2021 17:25:28 Myocardial infarct finding now present Sinus rhythm no longer present T-wave abnormality no longer present Electronically Signed On 12-28-2021 13:31:59 CDT by Vincent Velarde M.D. [id number]
[2021-12-26] MEDS: levothyroxine 100 mcg Tablet PO (20:59)
[2021-12-26] MEDS: sodium chloride 0.9% 1,000 ML 100 ML IV (21:00)
[2021-12-26] MEDS: enoxaparin 40 mg/0.4 mL Syringe SUBCUT (21:00)
[2021-12-26 21:29] LABS: Free T4 Free Thyroxine 0.27 ng/dL (0.82-1.77)
[2021-12-26 21:31] LABS: Troponin 5 6HR 20.39 ng/L (0-10)
[2021-12-26 21:32] LABS: Magnesium 1.7 mg/dL (1.7-2.3); Troponin 5 6HR Delta 1.39 ng/L (0-12)
[2021-12-27] VITALS (10 sets, daily range): BP systolic 78–142; BP diastolic 47–92; PULSE 58–78; RESP 16–18; TEMP 36.6–37.4; O2SAT 89–96
[2021-12-27 05:02] LABS: Basophils % 0.1 %; Hematocrit 31.5 % (37.0-47.0); Hemoglobin 10.3 g/dL (11.5-15.3); Lymphocytes # 0.4 10^3/uL (0.8-4.8); Lymphocytes % 6.2 %; Mean Corpuscular HGB Conc 32.7 g/dL (30.0-36.0); Mean Corpuscular Hemoglobin 32.4 pg (28.0-34.0); Mean Corpuscular Volume 99.1 fl (81-99); Mean Platelet Volume 10.3 fL (7.4-10.4); Monocytes # 0.2 10^3/uL (0.2-0.9); Monocytes % 3.4 %; Neutrophils # 6.38 10^3/uL (1.8-7.7); Neutrophils % 89.7 %; Nucleated Red Blood Cells % 0 %; Platelet Count 112 10^3/cmm (130-400); Red Blood Count 3.18 10^6/uL (4.1-5.3); Red Cell Distribution Width 13.8 % (12.1-15.1); White Blood Count 7.1 10^3/uL (4.0-10.0)
[2021-12-27 05:26] LABS: Alanine Aminotransferase 25 U/L (0-33); Albumin Level 3.4 g/dL (3.5-5.2); Alkaline Phosphatase 54 U/L (35-105); Anion Gap 13.7 (5-19); Aspartate Amino Transferase 44 U/L (0-32); Blood Urea Nitrogen 18 mg/dL (8-23); Calcium 8.1 mg/dL (8.5-10.5); Carbon Dioxide 23 mmol/L (22-29); Chloride 104 mmol/L (98-107); Glomerular Filtration Rate 61.9 mL/min (90-130); Glucose 133 mg/dL (65-115); Magnesium 1.7 mg/dL (1.7-2.3); Osmolality Calculated 288 mOsm/kg (285-295); Potassium 3.7 mmol/L (3.5-5.1); Sodium 137 mmol/L (136-145); Total Bilirubin 0.5 mg/dL (0.15-1.2); Total Protein 6.4 g/dL (6.6-8.7)
[2021-12-27 05:33] LABS: Free T4 Free Thyroxine 0.27 ng/dL (0.82-1.77)
[2021-12-27] MEDS: sodium chloride 0.9% 1,000 ML 100 ML IV ×2 (05:44→15:43)
[2021-12-27 05:46] LABS: Slide Review Slide Review Perform
[2021-12-27] MEDS: levothyroxine 100 mcg Tablet PO (07:59)
--- NOTE | 2021-12-27 15:38 | P.PN_ITS ---
Subjective Subjective: patient noted to have significant orthostatic hypotension again this morning. Systolic blood pressure dropped to 78. Associated symptoms include lightheadedness and dizziness. Patient thought she was going to pass out. Her serum cortisol returned elevated. No further doses of hydrocortisone indicated. Medications: Reviewed: Yes Vitals/I&O/Wt Last Vital Signs Temp 98.0 F 12/27/21 11:34 Pulse 66 12/27/21 11:34 Resp 17 12/27/21 11:34 BP 129/78 12/27/21 11:34 Pulse Ox 92 12/27/21 11:34 O2 Del Method 12/27/21 11:34 O2 Flow Rate 2 12/27/21 08:00 12/27/21 12/27/21 12/27/21 06:59 14:59 22:59 Intake Total 1173.333 / 1223.333 480 / 480 Output Total 1000 / 1000 Balance 173.333 / 223.333 480 / 480 Weight last 48 hrs Weight 62.732 kg Weight 58.967 kg Weight 58.967 kg Physical Exam Narrative: General: No acute distress, AO x3 HEENT: PERRLA, pupils bilaterally equal and reactive, pallors not present Chest: Normal vesicular breath sounds, no added sounds, equal good air entry bilaterally CVS: S1-S2 regular, no murmurs, no tachycardia, no gallops, no rubs Abdomen: Soft, nontender, no organomegaly, bowel sounds present Neuro: No focal deficits, no facial deformity, AO x3, power 5/5 in all limbs Data : 12/27/21 04:20 12/27/21 04:20 A&P Assessment and plan (1) Hypothyroidism (acquired): Patient appears to have profound hypothyroidism, impacting her quality of life. She has some constipation, peripheral neuropathy, orthostatic hypotension, anemia with macrocytosis I think it is likely that her hypothyroidism may be contributing to her orthostatic hypotension. Continue levothyroxine 100 mics p.o. daily. Recheck TSH and T4 in a.m. Status: Acute (2) Syncope due to orthostatic hypotension: Again significantly hypotensive this morning with associated lightheadedness and near syncope. Start midodrine 5 mg p.o. 3 times daily and monitor for response. Status: Acute (3) UTI (urinary tract infection): Urine culture Rocephin 1 g IV every 24 hours Status: Acute (4) Anemia: Macrocytic. Likely related to hypothyroidism. Associated with low platelets. Will need monitored as an outpatient. Anemia panel will be checked. Status: Acute Plan Other medical problems as outlined in past medical history Full code Lovenox will suffice for DVT prophylaxis Attestations Medical Necessity Statement*: Continued admission for orthostatic hypotension which is symptomatic, increased fall risk, added midodrine today and monitor for response. Coding Level of Care Code Acute Undercover Operator for Chg Fwd Diagnoses Hypothyroidism (acquired) E03.9 Syncope due to orthostatic hypotension I95.1 UTI (urinary tract infection) N39.0 Anemia D64.9
[2021-12-27] MEDS: cefTRIAXone 1,000 MG in sodium chloride 0.9% (plus) 50 ML 100 MG IV (15:43)
[2021-12-27] MEDS: midodrine 5 mg TABLET PO ×2 (15:43→20:18)
[2021-12-27] MEDS: enoxaparin 40 mg/0.4 mL Syringe SUBCUT (20:19)
[2021-12-28] VITALS (12 sets, daily range): BP systolic 67–151; BP diastolic 36–77; PULSE 50–84; RESP 16–22; TEMP 36.6–37.3; O2SAT 91–99
[2021-12-28] MEDS: sodium chloride 0.9% 1,000 ML 100 ML IV (01:24)
[2021-12-28] MEDS: ondansetron 2 mg/ML SDV 2 mL 4 MG IVP (01:27)
[2021-12-28 05:53] LABS: Free T4 Free Thyroxine 0.39 ng/dL (0.82-1.77); Thyroid Stimulating Hormone 91.13 uIU/mL (0.27-4.20)
--- NOTE | 2021-12-28 08:20 | XRR_ITS ---
PROCEDURE INFORMATION: Exam: XR Chest Exam date and time: 12/28/2021 9:51 AM Age: 71 years old Clinical indication: Cough and other: Increased oxygen requirement TECHNIQUE: Imaging protocol: Radiologic exam of the chest. Views: 1 view. COMPARISON: CT chest [facility] [id number] 03/03/2021 4:07 PM FINDINGS: Lungs: There are normal lung volumes without confluent interstitial or airspace opacities. Minimal left basilar atelectasis is seen. The inferior right middle lobe and lingular regions of bronchiectasis seen on the prior CT are not well assessed on the chest radiograph. Pleural spaces: There are no pleural effusions or pneumothorax. Heart/Mediastinum: The heart size is normal. There is a mildly tortuous thoracic aorta. The trachea is in the midline. Bones/joints: No acute abnormalities. Soft tissues: Multiple external densities are seen overlying the chest, limiting assessment. XR/XR chest 1V portable [id number] IMPRESSION: Minimal left basilar atelectasis. No confluent infiltrates in the lungs.
--- NOTE | 2021-12-28 08:24 | PC.NURSE ---
Physician notified of patients increased oxygen demands, chest congestion and recent covid 19 exposure. Received orders to stop fluids, obtain portable chest xray, and covid PCR test.
[2021-12-28] MEDS: levothyroxine 100 mcg Tablet PO (08:45)
[2021-12-28] MEDS: midodrine 5 mg TABLET PO (08:45)
--- NOTE | 2021-12-28 11:08 | PM.PN ---
Subjective Subjective: Significant orthostatic hypotension down to blood pressure 67/36 today. Symptomatic with lightheadedness at the time. Started on midodrine 5 mg 3 times daily yesterday following which she states she experiences goosebumps over lower extremities. No other reported symptoms. Overnight she developed a cough, this morning oxygen requirements are up to 4 L/min supplemental O2. Also had dry heaves overnight. She reports that her grandson with whom she lives was recently COVID-positive. Review of prior records shows that she has a history of mild COPD. She denies any current shortness of breath. Medications: Reviewed: Yes Vitals/I&O/Wt Last Vital Signs Temp 98.7 F 12/28/21 07:32 Pulse 72 12/28/21 08:00 Resp 16 12/28/21 07:32 BP 106/66 12/28/21 08:00 Pulse Ox 95 12/28/21 08:00 O2 Del Method 12/28/21 08:00 O2 Flow Rate 4 12/28/21 08:00 12/27/21 12/28/21 12/28/21 22:59 06:59 14:59 Intake Total 1728.333 / 2208.333 1408.333 / 3616.666 818.333 / 818.333 Output Total 800 / 800 1000 / 1800 Balance 928.333 / 1408.333 408.333 / 1816.666 818.333 / 818.333 Weight last 48 hrs Weight 46.629 kg Weight 62.732 kg Weight 58.967 kg Weight 58.967 kg Physical Exam Narrative: General: No acute distress, AO x3 HEENT: PERRLA, pupils bilaterally equal and reactive, pallors not present Chest: Crackles to auscultation right infra axillary area. CVS: S1-S2 regular, no murmurs, no tachycardia, no gallops, no rubs Abdomen: Soft, nontender, no organomegaly, bowel sounds present Neuro: No focal deficits, no facial deformity, AO x3, power 5/5 in all limbs Extremities: No edema clubbing or cyanosis Data : 12/27/21 04:20 12/27/21 04:20 Micro: Microbiology 12/26/21 16:00 Urine Culture - Preliminary Urine,Clean Catch Gram Negative Rods A&P Assessment and plan (1) Hypothyroidism (acquired): Patient appears to have profound hypothyroidism, impacting her quality of life. She has some constipation, peripheral neuropathy, orthostatic hypotension, anemia with macrocytosis it is likely that her hypothyroidism may be contributing to her orthostatic hypotension. Continue levothyroxine 100 mics p.o. daily. Recheck TSH and T4 in a.m. Ultrasound of the thyroid shows an enlarged heterogeneous gland with increased vascularity. Suspected thyroiditis. No dominant nodule. Will need outpatient follow-up with endocrinology. Status: Acute (2) Syncope due to orthostatic hypotension: Again significantly hypotensive this morning with associated lightheadedness and near syncope. Increase midodrine 10 mg p.o. 3 times daily and monitor for response. Status: Acute (3) UTI (urinary tract infection): Urine culture Preliminary with GNR, follow final ID & susceptibility. Rocephin 1 g IV every 24 hours Status: Acute (4) Anemia: Macrocytic. Likely related to hypothyroidism. Associated with low platelets. Will need monitored as an outpatient. Anemia panel will be checked. Status: Acute (5) Hypoxia: Hypoxia with new 02 requirement, 2 L/min on arrival. Overnight developed worsening cough and now oxygen requirement up to 4 L/min on supplemental O2. Cause is not clear at this time. Chest x-ray shows left lower lobe atelectasis but no consolidation. Patient has been afebrile since admission. Less suspicious of a pneumonia at this time. Added incentive spirometry. Review of past PFT from June 2021 shows patient has mild COPD. Will initiate nebulization with DuoNeb every 6 hours scheduled. Will obtain D-dimer, if elevated will proceed with CTA to evaluate for PE. Check COVID PCR given recent positive household contact. Check BNP. Echocardiogram with LVEF of 59%, no regional wall motion abnormalities. Mild left ventricular hypertrophy, mild biatrial enlargement, thickened mitral valve with mild mitral regurgitation. Status: Acute Plan Other medical problems as outlined in past medical history Full code Lovenox will suffice for DVT prophylaxis Attestations Medical Necessity Statement*: Still with persisting severe orthostatic hypotension which is symptomatic. New hypoxia undergoing evaluation. Coding Level of Care Code Acute Environmental Monitoring Technician for Chg Fwd Diagnoses Hypothyroidism (acquired) E03.9 Syncope due to orthostatic hypotension I95.1 UTI (urinary tract infection) N39.0 Anemia D64.9 Hypoxia R09.02
[2021-12-28 11:34] LABS: NT Pro B Type Natriuretic Pept 1299 pg/mL (0-125)
[2021-12-28 11:37] LABS: Adenovirus Not Detected (NOT DETECT); Chlamydia Pneumoniae Not Detected (NOT DETECT); Coronavirus 229E,HKU1,NL63,OC4 Not Detected (NOT DETECT); Human Metapneumovirus Not Detected (NOT DETECT); Human Rhinovirus/Enterovirus Not Detected (NOT DETECT); Influenza A Not Detected (NOT DETECT); Influenza A H1 Not Detected (NOT DETECT); Influenza A H1-2009 Not Detected (NOT DETECT); Influenza A H3 Not Detected (NOT DETECT); Influenza B Not Detected (NOT DETECT); Mycoplasma Pneumoniae Not Detected (NOT DETECT); Parainfluenza Virus Type 1 Not Detected (NOT DETECT); Parainfluenza Virus Type 2 Not Detected (NOT DETECT); Parainfluenza Virus Type 3 Not Detected (NOT DETECT); Parainfluenza Virus Type 4 Not Detected (NOT DETECT); Respiratory Syncytial Virus A Not Detected (NOT DETECT); Respiratory Syncytial Virus B Not Detected (NOT DETECT); SARS-COV-2 Detected (NOT DETECT)
--- NOTE | 2021-12-28 12:13 | CTR_ITS ---
PROCEDURE INFORMATION: Exam: CTA Chest With Contrast Exam date and time: 12/28/2021 2:24 PM Age: 71 years old Clinical indication: Shortness of breath; Additional info: Evalute for pe, covid + with new hypoxia TECHNIQUE: Imaging protocol: Computed tomographic angiography of the chest with contrast. 3D rendering (Not supervised by radiologist): MIP and/or 3D reconstructed images were created by the technologist. Radiation optimization: All CT scans at this facility use at least one of these dose optimization techniques: automated exposure control; mA and/or kV adjustment per patient size (includes targeted exams where dose is matched to clinical indication); or iterative reconstruction. Contrast material: OMNI 350; Contrast volume: 85 ml; Contrast route: INTRAVENOUS (IV); COMPARISON: CT chest wo con [id number] 03/03/2021 4:07 PM RADIATION DOSE METRICS: Total DLP (mGy-cm): 228.34 FINDINGS: Pulmonary arteries: Normal. No pulmonary emboli. Aorta: No aortic aneurysm. No aortic dissection. Veins: Somewhat distended intrahepatic IVC with slight reflux of contrast suggesting passive congestion/right cardiac-tricuspid dysfunction. Lungs: Bilateral infrahilar and posterior basilar patchy consolidations suggesting multifocal pneumonias and clinical correlation/follow-up exam should be obtained. Aspiration may also be considered. Ill-defined non round ground-glass opacities are noted in the right upper lobe and probably bilateral suprahilar regions, increased since prior exam suggesting new multifocal pneumonia. Pleural spaces: Bilateral trace pleural effusions. No pneumothorax. Heart: Mild cardiomegaly with coronary calcification. Stable trace pericardial effusion. Mediastinal space: Mild fluid distension and/or mild distal esophageal wall thickening. This may be reflux and esophagitis. Follow-up assessment should be considered. Lymph nodes: Nonspecific slightly prominent right hilar lymph node measuring 12 mm. No other enlarged mediastinal hilar adenopathy. Spleen: Calcified splenic granulomas. Bones/joints: No acute fracture. Soft tissues: Unremarkable. CT/CT angio chest PE protcl [id number] IMPRESSION: 1. Comparison CT 03/03/2021. 2. No acute PE. 3. Mild cardiomegaly with coronary calcification. Probable passive hepatic congestion/right heart-tricuspid dysfunction as above. 4. Infrahilar/posterior basilar bilateral consolidations and small pleural effusions. Several new ill-defined non round ground-glass opacities are also present as described.Imaging features can be seen with COVID-19 pneumonia, though are nonspecific and can occur with a variety of infectious and noninfectious processes. (Reference: Derian) 5. Mild nonspecific right hilar adenopathy. This may be reactive. REFERENCES: Derian Marion et al., Radiological Society of [place] Expert Consensus Statement on Reporting Chest CT Findings Related to COVID-19. Endorsed by the Society of Thoracic Radiology, the [place] [employer], and RSNA. Published July 12, 2019.
[2021-12-28 12:39] LABS: D Dimer 1.75 ug/mIFEU (0-0.59)
[2021-12-28] MEDS: dexamethasone 4 mg/mL INJ 6 MG IVP (12:53)
[2021-12-28] MEDS: remdesivir 200 MG in sodium chloride 0.9% (100 ml) 100 ML 100 MG IV (13:21)
[2021-12-28] MEDS: iohexol 350 mg/mL 100 mL Btl IV (14:30)
[2021-12-28] MEDS: ipratropium-albuterol 3 mL Neb INHALATION ×2 (14:47→20:51)
[2021-12-28] MEDS: midodrine 5 mg TABLET 10 MG PO ×2 (14:52→21:09)
[2021-12-28] MEDS: cefTRIAXone 1,000 MG in sodium chloride 0.9% (plus) 50 ML 100 MG IV (17:42)
[2021-12-28] MEDS: enoxaparin 40 mg/0.4 mL Syringe SUBCUT (21:09)
[2021-12-29] VITALS (12 sets, daily range): BP systolic 81–159; BP diastolic 42–82; PULSE 40–72; RESP 16–20; TEMP 36.5–37.3; O2SAT 93–99
[2021-12-29 05:08] LABS: Hematocrit 31.3 % (37.0-47.0); Lymphocytes # 0.4 10^3/uL (0.8-4.8); Lymphocytes % 6.5 %; Mean Corpuscular HGB Conc 31.9 g/dL (30.0-36.0); Mean Corpuscular Hemoglobin 31.9 pg (28.0-34.0); Mean Platelet Volume 10.1 fL (7.4-10.4); Monocytes # 0.4 10^3/uL (0.2-0.9); Monocytes % 6.5 %; Neutrophils # 5.08 10^3/uL (1.8-7.7); Neutrophils % 86.2 %; Nucleated Red Blood Cells % 0 %; Platelet Count 159 10^3/cmm (130-400); Red Blood Count 3.13 10^6/uL (4.1-5.3); Red Cell Distribution Width 13.8 % (12.1-15.1); White Blood Count 5.9 10^3/uL (4.0-10.0)
[2021-12-29 05:35] LABS: Alanine Aminotransferase 18 U/L (0-33); Albumin Level 3.3 g/dL (3.5-5.2); Alkaline Phosphatase 51 U/L (35-105); Anion Gap 15.3 (5-19); Aspartate Amino Transferase 27 U/L (0-32); Blood Urea Nitrogen 10 mg/dL (8-23); C Reactive Protein 30.7 mg/L (0.0-4.9); Calcium 8.4 mg/dL (8.5-10.5); Carbon Dioxide 23 mmol/L (22-29); Chloride 102 mmol/L (98-107); Free T4 Free Thyroxine 0.48 ng/dL (0.82-1.77); Globulin 3.2 g/dL (1.3-4.6); Glomerular Filtration Rate 70.9 mL/min (90-130); Glucose 130 mg/dL (65-115); Osmolality Calculated 285 mOsm/kg (285-295); Potassium 3.3 mmol/L (3.5-5.1); Sodium 137 mmol/L (136-145); Thyroid Stimulating Hormone 36.41 uIU/mL (0.27-4.20); Total Bilirubin 0.4 mg/dL (0.15-1.2); Total Protein 6.5 g/dL (6.6-8.7)
[2021-12-29] MEDS: ipratropium-albuterol 3 mL Neb INHALATION ×3 (08:11→19:56)
[2021-12-29] MEDS: midodrine 5 mg TABLET 10 MG PO ×3 (08:23→20:33)
[2021-12-29] MEDS: levothyroxine 100 mcg Tablet PO (08:23)
[2021-12-29] MEDS: pantoprazole DR 40 mg Tablet PO (08:23)
[2021-12-29] MEDS: dexamethasone 4 mg/mL INJ 6 MG IVP (14:36)
[2021-12-29] MEDS: ondansetron 2 mg/ML SDV 2 mL 4 MG IVP (14:51)
--- NOTE | 2021-12-29 14:59 | PM.PN ---
Subjective Subjective: Today she is feeling better. Yesterday she was coughing overnight quite a bit, last night she was coughing less, producing more phlegm. Has mild nausea. No vomiting. No diarrhea. Not normally on supplemental oxygen. Has been dealing with severe orthostatic hypotension for a while. Sometimes needs to lean over or squat due to severity of symptoms when she is upright, sometimes happening when grocery shopping or other locations. She states she usually squats so that she feels lightheaded or like she might pass out which helps her symptoms. Vitals/I&O/Wt Last Vital Signs Temp 98.2 F 12/29/21 11:30 Pulse 67 12/29/21 11:30 Resp 18 12/29/21 11:30 BP 140/70 12/29/21 11:30 Pulse Ox 93 12/29/21 11:30 O2 Del Method 12/29/21 11:30 O2 Flow Rate 5 12/29/21 08:15 12/28/21 12/29/21 12/29/21 22:59 06:59 14:59 Intake Total 586 / 1522.333 120 / 1642.333 960 / 960 Balance 586 / 1522.333 120 / 1642.333 960 / 960 Weight last 48 hrs Weight 46.629 kg Physical Exam Narrative: Son visiting here from out of town at bedside. Const: COMMON NORMALS: patient oriented x3 and alert GENERAL APPEARANCE: cooperative ORIENTATION/CONSCIOUSNESS: Yes awake HENMT: COMMON NORMALS: oropharynx normal Neck/C-Spine: COMMON NORMALS: no JVD Resp: COMMON NORMALS: normal respiratory effort and clear to auscultation bilaterally AUSCULTATION: clear to auscultation bilaterally Cardio: COMMON NORMALS: no JVD, regular rhythm, S1 normal heart sound present, S2 normal heart sound present and No murmurs present (Cardio) RHYTHM: regular rhythm HEART SOUNDS: S1 normal heart sound present and S2 normal heart sound present GI: COMMON NORMALS: Normal to inspection, nondistended, normoactive bowel sounds present, Soft to palpation and non-tender PALPATION: Yes Soft to palpation Extremity: COMMON NORMALS: no joint enlargement and no pedal edema Neuro: COMMON NORMALS: patient oriented x3 and moves all extremities SENSORIUM/ORIENTATION: Yes alert Skin: COMMON NORMALS: no rashes or lesions noted GENERAL SKIN EXAM: no rashes or lesions noted Data : 12/29/21 04:34 12/29/21 04:34 Micro: Microbiology 12/26/21 16:00 Urine Culture - Preliminary Urine,Clean Catch Gram Negative Rods A&P Assessment and plan (1) COVID-19: Continue Decadron, remdesivir, she is gradually improving. Continue oxygen support. Wean down as tolerating. Lovenox VT prophylaxis. CTA without PE. Antitussives as needed. Possible superimposed bacterial pneumonia. Continue ceftriaxone, add azithromycin. Continued symptoms from her. Added flutter valve. Status: Acute (2) Hypoxia: As above Echocardiogram with LVEF of 59%, no regional wall motion abnormalities. Mild left ventricular hypertrophy, mild biatrial enlargement, thickened mitral valve with mild mitral regurgitation. Status: Acute (3) Syncope due to orthostatic hypotension: Reports longstanding orthostatic hypotension for years. Has been following with primary provider. Had briefly tried midodrine, but had some goosebumps, some hair loss, attributed to midodrine, stopped. Discussed with her she is currently continued on midodrine 10 mg 3 times daily. Discussed that there may be some additional effect from COVID-19, although she does have chronic orthostatic hypotension without it. Discussed additional considerations including graduated compression stockings. Continue to follow-up for consideration of other medications in case management not effective or not tolerated. She is well aware of orthostatic precautions, discussing with her she has been leaning over or Status: Acute (4) Hypothyroidism (acquired): Patient appears to have profound hypothyroidism, impacting her quality of life. She has some constipation, peripheral neuropathy, orthostatic hypotension, anemia with macrocytosis it is likely that her hypothyroidism may be contributing to her orthostatic hypotension. Continue levothyroxine 100 mics p.o. daily. Recheck TSH and T4 still abnormal, although improving. Ultrasound of the thyroid shows an enlarged heterogeneous gland with increased vascularity. Suspected thyroiditis. No dominant nodule. Will need outpatient follow-up with endocrinology. Status: Acute (5) UTI (urinary tract infection): Urine culture Preliminary with GNR, follow final ID & susceptibility. Rocephin 1 g IV every 24 hours Status: Acute (6) Anemia: Macrocytic. Likely related to hypothyroidism. Associated with low platelets. Will need monitored as an outpatient. Additionally iron deficiency anemia. Will need additional work-up. Check Hemoccult Status: Acute Plan Other medical problems as outlined in past medical history Full code Lovenox will suffice for DVT prophylaxis Attestations Medical Necessity Statement*: Continue admission for assessment management of hypoxic respite failure, newly requiring 5 L nasal cannula oxygen, severe COVID-19, superimposed bacterial pneumonia, severe orthostasis with syncope. UTI. Coding Level of Care Code Acute Manager [employer] for [facility] Diagnoses COVID-19 U07.1 Hypoxia R09.02 Syncope due to orthostatic hypotension I95.1 Hypothyroidism (acquired) E03.9 UTI (urinary tract infection) N39.0 Anemia D64.9
[2021-12-29] MEDS: cefTRIAXone 1,000 MG in sodium chloride 0.9% (plus) 50 ML 100 MG IV (16:29)
[2021-12-29] MEDS: remdesivir 100 MG in sodium chloride 0.9% (100 ml) 80 ML IV (18:48)
--- NOTE | 2021-12-29 19:00 | PC.NURSE ---
I have reviewed and agree with Documentation by Maritza coffman Student Nurse
[2021-12-29] MEDS: enoxaparin 40 mg/0.4 mL Syringe SUBCUT (20:32)
[2021-12-29] MEDS: azithromycin 500 MG in sodium chloride 0.9% 250 ML 250 MG IV (20:52)
[2021-12-29] MEDS: acetaminophen 325 mg Tablet 650 MG PO (22:24)
[2021-12-30] VITALS (12 sets, daily range): BP systolic 84–158; BP diastolic 54–89; PULSE 49–95; RESP 16–20; TEMP 36.4–36.7; O2SAT 82–98
[2021-12-30 02:26] LABS: Hematocrit 29.6 % (37.0-47.0); Lymphocytes # 0.4 10^3/uL (0.8-4.8); Lymphocytes % 7.8 %; Mean Corpuscular HGB Conc 33.8 g/dL (30.0-36.0); Mean Corpuscular Hemoglobin 32.5 pg (28.0-34.0); Mean Corpuscular Volume 96.1 fl (81-99); Mean Platelet Volume 9.9 fL (7.4-10.4); Monocytes # 0.3 10^3/uL (0.2-0.9); Monocytes % 6.3 %; Neutrophils # 4.35 10^3/uL (1.8-7.7); Neutrophils % 85.3 %; Nucleated Red Blood Cells % 0 %; Platelet Count 185 10^3/cmm (130-400); Red Blood Count 3.08 10^6/uL (4.1-5.3); Red Cell Distribution Width 13.7 % (12.1-15.1); White Blood Count 5.1 10^3/uL (4.0-10.0)
[2021-12-30] MEDS: ipratropium-albuterol 3 mL Neb INHALATION ×2 (02:35→10:17)
[2021-12-30 02:46] LABS: D Dimer 1.86 ug/mIFEU (0-0.59)
[2021-12-30 02:54] LABS: Alanine Aminotransferase 21 U/L (0-33); Albumin Level 3.7 g/dL (3.5-5.2); Alkaline Phosphatase 50 U/L (35-105); Anion Gap 14.4 (5-19); Aspartate Amino Transferase 26 U/L (0-32); Blood Urea Nitrogen 14 mg/dL (8-23); Calcium 8.6 mg/dL (8.5-10.5); Carbon Dioxide 25 mmol/L (22-29); Chloride 105 mmol/L (98-107); Glomerular Filtration Rate 70.9 mL/min (90-130); Glucose 170 mg/dL (65-115); Osmolality Calculated 296 mOsm/kg (285-295); Potassium 3.4 mmol/L (3.5-5.1); Sodium 141 mmol/L (136-145); Total Bilirubin 0.3 mg/dL (0.15-1.2); Total Protein 6.7 g/dL (6.6-8.7)
[2021-12-30] MEDS: levothyroxine 100 mcg Tablet PO (09:26)
[2021-12-30] MEDS: midodrine 5 mg TABLET 10 MG PO (09:26)
[2021-12-30] MEDS: pantoprazole DR 40 mg Tablet PO (09:27)
[2021-12-30] MEDS: dexamethasone 4 mg/mL INJ 6 MG IVP (13:27)
--- NOTE | 2021-12-30 13:36 | P.DS_ITS ---
Discharge Providers Date of Admission: 12/28/21 11:10 Date of Discharge: December 30, 2021 Attending Provider at Admission: Harjeet Vega MD Attending Provider at Discharge: Deangelo Fischer Primary Care Provider: Abhinav Ac MD Diagnoses at Discharge Discharge Diagnosis (1) COVID-19: Status: Acute (2) Hypoxia: Status: Acute (3) Syncope due to orthostatic hypotension: Status: Acute (4) Hypothyroidism (acquired): Status: Acute (5) UTI (urinary tract infection): Status: Acute (6) Anemia: Status: Acute Reason for Visit Reason for Visit: SYNCOPAL EPISODE/ HYPOTENSION Hospital Course Hospital Course Very pleasant 71-year-old lady with longstanding history of severe orthostatic hypotension, history of hypothyroidism, other chronic problems presented for assessment after syncopal episode, on presentation noted with orthostatic hypotension, received fluid challenge, noted to be hypothyroid, with symptoms of thyroid deficiency, was recently started on Synthroid, taking it for several days, dose in the hospital was increased to 100 mcg while here, at discharge continued at 75 mcg and she will be asked to follow-up with endocrinology. While in the hospital also found to have a urinary tract infection for which was started on Rocephin while here. So far growing gram-negative rods, please follow-up final urine culture. At discharge she will continue regimen with cefdinir. She also was noted to have microcytic anemia, although on further assessment noted to have iron deficiency as well, will benefit once out of acute illness from assessment by endoscopic means to exclude any concerning causes of iron deficiency anemia. Please follow-up anemia, continue work-up. She is started on iron supplementation. While in the hospital also noted with new oxygen requirement, up to 5 L nasal cannula, D-dimer with abnormality, no PE noted on CTA, however, found to be COVID-positive. Mild nonspecific right hilar adenopathy, possibly reactive. With severe COVID-19 received treatment while in hospital with Decadron, rem desivir, with some productive cough concern for developing possibly superimposed bacterial pneumonia continued on ceftriaxone, azithromycin. Had mild nausea. Her cough gradually has been improving, oxygenation doing much better, currently down to 2 L nasal cannula at rest, no requiring 3 L on home O2 evaluation. She will complete antibiotic course with cefdinir and azithromycin. Nausea has res olved. She is tolerating oral intake. She is noted to have persistent orthostatic hypotension. Echocardiogram with normal EF, no R WMA. Mild LV hypertrophy, mild biatrial enlargement, thickened mitral valve with mild MVR. While in the hospital midodrine dose was increased to 10 mg 3 times daily, however, without improvement in her orthostasis, and it worsening bradycardia, heart rates 50s sometimes down to 40s, midodrine is discontinued. We discussed with her obtaining graduated compression stockings, 20-30 mmHg, thigh-high if possible to help reduce severity of orthostasis which to her is rather disabling, sometimes she is needing to sit down while getting around from the bathroom, or doing basic activities like cleaning up or shopping (a bedside commode is requested for her due to difficulties getting from the restroom at night), and per discussion with her she wants to try fludrocortisone instead, so is initiated with starting dose of 0.1 mg daily, please reassess orthostatics at next visit, adjust fludrocortisone dose depending on results, monitor for fluid overload as also discussed with her. Consider assessment at dysautonomia clinic. Physical Exam Narrative: Son accompanies her at bedside Const: COMMON NORMALS: patient oriented x3 and alert GENERAL APPEARANCE: cooperative ORIENTATION/CONSCIOUSNESS: Yes awake HENMT: COMMON NORMALS: oropharynx normal Neck/C-Spine: COMMON NORMALS: no JVD Resp: COMMON NORMALS: normal respiratory effort and clear to auscultation bilaterally AUSCULTATION: clear to auscultation bilaterally, rhonchi (Minimal at base) and no wheezes Cardio: COMMON NORMALS: no JVD, regular rhythm, S1 normal heart sound present, S2 normal heart sound present and No murmurs present (Cardio) RHYTHM: regular rhythm HEART SOUNDS: S1 normal heart sound present and S2 normal heart sound present GI: COMMON NORMALS: Normal to inspection, nondistended, normoactive bowel sounds present, Soft to palpation and non-tender PALPATION: Yes Soft to palpation Extremity: COMMON NORMALS: no joint enlargement and no pedal edema Neuro: COMMON NORMALS: patient oriented x3 and moves all extremities SENSORIUM/ORIENTATION: Yes alert Skin: COMMON NORMALS: no rashes or lesions noted GENERAL SKIN EXAM: no rashes or lesions noted Discharge Data Studies Completed and Pending Completed Studies During Hospitalization Category Date Time Status CTA chest [CT angio chest PE protcl [id number]] Routine Cat Scan 12/28/21 12:13 Completed XR chest 1V portable [id number] Routine Exams 12/28/21 08:20 Completed Pending at discharge Category Date Time Status Complete Blood Count w/Auto AM LABS Lab 12/31/21 04:00 Ordered Complete Blood Count w/Auto AM LABS Lab 01/01/22 04:00 Ordered Comprehensive Metabolic Panel AM LABS Lab 12/31/21 04:00 Ordered Comprehensive Metabolic Panel AM LABS Lab 01/01/22 04:00 Ordered D Dimer AM LABS Lab 12/31/21 04:00 Ordered D Dimer AM LABS Lab 01/01/22 04:00 Ordered Immunochemical Fecal OCB Routine Lab 12/29/21 15:10 Uncollected Sputum Culture and Gram Stain Routine Lab 12/29/21 15:01 Uncollected Urine Culture Stat Lab 12/26/21 16:00 Results Radiology Impressions Chest X-Ray 12/28/21 08:20 IMPRESSION: Minimal left basilar atelectasis. No confluent infiltrates in the lungs. Chest CTA 12/28/21 12:13 IMPRESSION: 1. Comparison CT 03/03/2021. 2. No acute PE. 3. Mild cardiomegaly with coronary calcification. Probable passive hepatic congestion/right heart-tricuspid dysfunction as above. 4. Infrahilar/posterior basilar bilateral consolidations and small pleural effusions. Several new ill-defined non round ground-glass opacities are also present as described.Imaging features can be seen with COVID-19 pneumonia, though are nonspecific and can occur with a variety of infectious and noninfectious processes. (Reference: Derian) 5. Mild nonspecific right hilar adenopathy. This may be reactive. REFERENCES: Derian Marion, et al., Radiological Society of [place] Expert Consensus Statement on Reporting Chest CT Findings Related to COVID-19. Endorsed by the Society of Thoracic Radiology, the [place] [employer], and RSNA. Published July 12, 2019. Laboratory Results WBC 5.1 10^3/uL (4.0-10.0) 12/30/21 02:06 RBC 3.08 10^6/uL (4.1-5.3) L 12/30/21 02:06 Hgb 10.0 g/dL (11.5-15.3) L 12/30/21 02:06 Hct 29.6 % (37.0-47.0) L 12/30/21 02:06 MCV 96.1 fl (81-99) 12/30/21 02:06 MCH 32.5 pg (28.0-34.0) 12/30/21 02:06 MCHC 33.8 g/dL (30.0-36.0) D 12/30/21 02:06 RDW 13.7 % (12.1-15.1) 12/30/21 02:06 Plt Count 185 10^3/cmm (130-400) 12/30/21 02:06 MPV 9.9 fL (7.4-10.4) 12/30/21 02:06 Neut % (Auto) 85.3 % 12/30/21 02:06 Lymph % (Auto) 7.8 % 12/30/21 02:06 Grainger % (Auto) 6.3 % 12/30/21 02:06 Eos % (Auto) 0.0 % 12/30/21 02:06 Baso % (Auto) 0.0 % 12/30/21 02:06 Neut # (Auto) 4.35 10^3/uL (1.8-7.7) 12/30/21 02:06 Lymph # (Auto) 0.4 10^3/uL (0.8-4.8) L 12/30/21 02:06 Grainger # (Auto) 0.3 10^3/uL (0.2-0.9) 12/30/21 02:06 Eos # (Auto) 0.0 10^3/uL (0.0-0.8) 12/30/21 02:06 Baso # (Auto) 0.0 10^3/uL (0.0-0.1) 12/30/21 02:06 Nucleated RBC % (auto) 0 % 12/30/21 02:06 Nucleated RBCs # 0.0 /100WBC 12/30/21 02:06 D-Dimer 1.86 ug/mIFEU (0-0.59) H 12/30/21 02:06 Sodium 141 mmol/L (136-145) 12/30/21 02:06 Potassium 3.4 mmol/L (3.5-5.1) L 12/30/21 02:06 Chloride 105 mmol/L (98-107) 12/30/21 02:06 Carbon Dioxide 25 mmol/L (22-29) 12/30/21 02:06 Anion Gap 14.4 (5-19) 12/30/21 02:06 BUN 14 mg/dL (8-23) 12/30/21 02:06 Creatinine 0.8 mg/dL (0.5-0.9) 12/30/21 02:06 GFR Calculation 70.9 mL/min (90-130) L 12/30/21 02:06 Glucose 170 mg/dL (65-115) H 12/30/21 02:06 Calculated Osmolality 296 mOsm/kg (285-295) H 12/30/21 02:06 Calcium 8.6 mg/dL (8.5-10.5) 12/30/21 02:06 Magnesium 1.7 mg/dL (1.7-2.3) 12/27/21 04:20 Iron 11 ug/dL (37-145) L 12/26/21 14:50 TIBC 259 mcg/dl 12/26/21 14:50 % Saturation 4.2 % (20-50) L 12/26/21 14:50 Unsat Iron Binding 248 ug/dL (112-347) 12/26/21 14:50 Ferritin 280 ng/mL (15-150) H 12/26/21 14:50 Total Bilirubin 0.3 mg/dL (0.15-1.2) 12/30/21 02:06 AST 26 U/L (0-32) 12/30/21 02:06 ALT 21 U/L (0-33) 12/30/21 02:06 Alkaline Phosphatase 50 U/L (35-105) 12/30/21 02:06 Troponin T Baseline 19 ng/L (0-10) H 12/26/21 14:50 Troponin T 120 Minute 19.43 ng/L (0-10) H 12/26/21 16:54 Delta Troponin T 0.43 ABS# (0-10) 12/26/21 16:54 Troponin T Hi Sens 6Hr 20.39 ng/L (0-10) H 12/26/21 20:50 Troponin T Hi Sens 6Hr Delta 1.39 ng/L (0-12) 12/26/21 20:50 C-Reactive Protein 30.7 mg/L (0.0-4.9) H 12/29/21 04:34 NT-Pro-B Natriuret Pep 1299 pg/mL (0-125) H 12/28/21 04:51 Total Protein 6.7 g/dL (6.6-8.7) 12/30/21 02:06 Albumin 3.7 g/dL (3.5-5.2) 12/30/21 02:06 Globulin 3.0 g/dL (1.3-4.6) 12/30/21 02:06 Vitamin B12 1052 pg/mL (232-1245) 12/26/21 14:50 Folate 6.1 ng/mL (4.8-37.3) 12/26/21 14:50 TSH 36.41 uIU/mL (0.27-4.20) H 12/29/21 04:34 Free T4 0.48 ng/dL (0.82-1.77) L 12/29/21 04:34 Random Cortisol 23.18 ug/dL (2.47-19.5) H 12/26/21 14:50 Urine Color Yellow (Yellow) 12/26/21 16:00 Urine Appearance Clear (CLEAR) 12/26/21 16:00 Urine pH 5 (5-7) 12/26/21 16:00 Ur Specific [place] 1.010 (1.005-1.030) 12/26/21 16:00 Urine Protein Neg (Negative) 12/26/21 16:00 Urine Glucose (UA) Norm (Normal) 12/26/21 16:00 Urine Ketones 1+ (Negative) H 12/26/21 16:00 Urine Blood 2+ (Negative) H 12/26/21 16:00 Urine Nitrate Positive (Negative) H 12/26/21 16:00 Urine Bilirubin Neg (Negative) 12/26/21 16:00 Urine Urobilinogen Norm mg/dL (Negative) 12/26/21 16:00 Ur Leukocyte Esterase 2+ (Negative) H 12/26/21 16:00 Urine RBC 0-4 /hpf (0-2) H 12/26/21 16:00 Urine WBC 10-15 /hpf (0-5) H 12/26/21 16:00 Ur Squamous Epith Cells 0-4 /hpf (0-5) H 12/26/21 16:00 Amorphous Sediment Not Reportable 12/26/21 16:00 Urine Bacteria 3+ /hpf (NONE) H 12/26/21 16:00 Coronavirus 229E (PCR) Not detected (NOT DETECT) 12/28/21 08:30 SARS-CoV-2 (PCR) Detected (NOT DETECT) A 12/28/21 08:30 Vitals Last Vital Signs Temp 98.1 F 12/30/21 12:00 Pulse 53 L 12/30/21 12:00 Resp 16 12/30/21 12:00 BP 158/89 12/30/21 12:00 Pulse Ox 97 12/30/21 12:00 O2 Del Method 12/30/21 12:00 O2 Flow Rate 3 12/30/21 12:00 Discharge Plan Discharge Patient Disposition: Home Condition: Stable Prescriptions: New fludrocortisone 0.1 mg tablet 0.1 mg PO DAILY Qty: 30 0RF azithromycin 250 mg tablet 250 mg PO DAILY 5 Days Qty: 5 0RF cefdinir 300 mg capsule 300 mg PO BID 5 Days Qty: 10 0RF ferrous sulfate 325 mg (65 mg iron) tablet,delayed release (DR/EC) 325 mg PO EVERY OTHER DAY Qty: 90 0RF Continued duloxetine [Cymbalta] 20 mg capsule,delayed release(DR/EC) 20 mg PO DAILY Changed levothyroxine 50 mcg tablet 75 mcg PO DAILY 90 Days Qty: 90 0RF Discontinued midodrine 5 mg tablet 5 mg PO BID 90 Days Qty: 180 0RF Discharge Orders: Discharge Order (Routine); Ordered 12/30/21 Ordered By: Deangelo Fischer Other Ambulatory Orders: DME: Commode (Order) Location: None Selected Ordered By: Deangelo Fischer DME: Oxygen (Order) Location: None Selected Ordered By: Deangelo Fischer Referrals: Jackson Hooper MD [Physician] - 2 weeks (Hypothyroidism, severe orthostasis) Abhinav Ac MD [Primary Care Provider] - 4-7 days Discharge Diet: Cardiac Discharge Activity: Increase activity as tolerated, Limit activity as instructed and Oxygen as instructed Patient Instructions: Azithromycin (By mouth), Fludrocortisone Acetate (By mouth), Cefdinir (By mouth), Urinary Tract Infection in Women (GEN), Hypothyroidism (GEN), Iron Deficiency Anemia (GEN), Using Oxygen at Home (GEN), Hypotension (GEN), Anemia (GEN), Hypoxia (GEN), COVID-19 (Coronavirus Disease 2019) (GEN) Activity Restrictions/Additional Instructions: Monitor oxygenation at home, continue oxygen as instructed, target saturation 90-92%. Wean down oxygen as tolerating. Continue flutter valve, incentive spirometer until he completely recovered. Complete antibiotic course for possible superimposed bacterial pneumonia, for UTI. Continue to maintain orthostatic precautions. Given midodrine has not been beneficial, and has been contributing to slow heart rate, it is discontinued. As per discussion you are started on lower dose of cortisone. Monitor your blood pressures at home laying down, sitting. In case you are feeling lightheaded, continue to preemptively sit down or lie down as you have been to avoid fainting. Follow-up with your primary doctor for reassessment of severe orthostatic hypotension and continued optimization of therapy. As discussed please consider obtaining graduated compression stockings, possibly thigh-high which may help partially alleviate the severity of orthostasis. Consider referral to specialist. Your thyroid medication has been adjusted, please have your primary doctor reassess thyroid function, follow-up with endocrinology. Please have your primary doctor follow-up on your anemia. You also are noted to have iron deficiency anemia, please discuss once you recover from acute illness additional assessment by endoscopic evaluation to further evaluate iron deficiency anemia for any concerning causes of blood loss. Please maintain isolation for further 2 days for COVID-19, after that if your symptoms continue to improve isolation may be discontinued apart from usual precautions recommended by CDC. Discharge Attestations Time Spent in Discharge Care*: greater than 30 min Quality Metrics Clinical Quality Measures [ No reported AMI, CVA or VTE this stay] Coding Level of Care Code Acute Chg FW DC note Exam Comprehensive Diagnoses COVID-19 U07.1 Hypoxia R09.02 Syncope due to orthostatic hypotension I95.1 Hypothyroidism (acquired) E03.9 UTI (urinary tract infection) N39.0 Anemia D64.9
== END 2021-12-30 16:15 | disposition home or self-care (01) | DRG 177 ==
LOC: ER 17:07 → MEDSURG 18:08
PROVIDERS: Student in an Organized Health Care Education/Training Program; Admitting Provider Internal Medicine; Emergency Provider Family Medicine; PCP Family Medicine; Visit Provider Internal Medicine
DX: U07.1 COVID-19 (principal); J15.9 Unspecified bacterial pneumonia; N39.0 Urinary tract infection, site not specified; K59.00 Constipation, unspecified; F32.A Depression, unspecified; E03.9 Hypothyroidism, unspecified; I95.1 Orthostatic hypotension; G62.9 Polyneuropathy, unspecified; G56.03 Carpal tunnel syndrome, bilateral upper limbs; D50.9 Iron deficiency anemia, unspecified; I34.0 Nonrheumatic mitral (valve) insufficiency
CPT/HCPCS: 36415; 71045; 71275; 80053; 81001; 82533; 82607; 82728; 82746; 83540; 83550; 83735; 83880; 84439; 84443; 84484; 85025; 85378; 86140; 87086; 87635; 93005; 94640; 94760; 96365; 96372; 96375; 99285; G0378; J0456; J0696; J1100; J1650; J1720; J2405; J7030; J7050; Q9967

== ENCOUNTER → 2022-01-05 08:00 | Outpatient (BNVA) | payer MEDICARE, OTHER, SELFPAY | PROVIDERS: PCP Family Medicine; Visit Provider Internal Medicine | DX: E03.9 Hypothyroidism, unspecified (principal); E03.8 Other specified hypothyroidism; E06.3 Autoimmune thyroiditis; I95.1 Orthostatic hypotension; K59.00 Constipation, unspecified; U07.1 COVID-19; G56.03 Carpal tunnel syndrome, bilateral upper limbs | CPT/HCPCS: 99204 ==

== ENCOUNTER → 2022-01-13 07:46 | Outpatient (BNVA) | payer MEDICARE, OTHER, SELFPAY | PROVIDERS: PCP Family Medicine; Visit Provider Specialist | DX: G56.03 Carpal tunnel syndrome, bilateral upper limbs (principal); E06.3 Autoimmune thyroiditis; G62.9 Polyneuropathy, unspecified; I95.1 Orthostatic hypotension | CPT/HCPCS: 99215 ==

== ENCOUNTER → 2022-01-19 13:30 | Outpatient (BNVA) | payer MEDICARE, OTHER, SELFPAY | PROVIDERS: PCP Family Medicine; Visit Provider Family Medicine | DX: E03.8 Other specified hypothyroidism (principal); E06.3 Autoimmune thyroiditis; E03.9 Hypothyroidism, unspecified; G56.03 Carpal tunnel syndrome, bilateral upper limbs | CPT/HCPCS: 84439 ==

== ENCOUNTER → 2022-02-04 15:52 | Outpatient (BNVA) | payer MEDICARE, OTHER, SELFPAY | PROVIDERS: PCP Family Medicine; Visit Provider Internal Medicine | DX: G56.03 Carpal tunnel syndrome, bilateral upper limbs (principal); E03.8 Other specified hypothyroidism; E06.3 Autoimmune thyroiditis; I95.1 Orthostatic hypotension; K59.00 Constipation, unspecified; U07.1 COVID-19 | CPT/HCPCS: 36415; 84439; 84443; 99214 ==

== ENCOUNTER 2022-04-06 14:12 | Outpatient (CLI) | payer MEDICARE, OTHER, SELFPAY ==
[2022-04-06 15:16] LABS: Free T4 Free Thyroxine 1.47 ng/dL (0.82-1.77); Thyroid Stimulating Hormone 0.27 uIU/mL (0.27-4.20)
== END 2022-04-06 14:13 | disposition home or self-care (01) ==
LOC: LAB 14:15
PROVIDERS: PCP Family Medicine; Visit Provider Internal Medicine
DX: E03.8 Other specified hypothyroidism (principal); E06.3 Autoimmune thyroiditis; G56.03 Carpal tunnel syndrome, bilateral upper limbs
CPT/HCPCS: 36415; 84439; 84443

== ENCOUNTER → 2022-04-16 14:58 | Outpatient (BNVA) | payer MEDICARE, OTHER, SELFPAY | PROVIDERS: PCP Family Medicine; Visit Provider Internal Medicine | DX: E06.3 Autoimmune thyroiditis (principal); E03.8 Other specified hypothyroidism; G56.03 Carpal tunnel syndrome, bilateral upper limbs; I95.1 Orthostatic hypotension; K59.00 Constipation, unspecified; Z79.890 Hormone replacement therapy | CPT/HCPCS: 99214 ==

== ENCOUNTER → 2022-07-06 13:46 | Outpatient (BNVA) | payer MEDICARE, OTHER, SELFPAY | PROVIDERS: PCP Family Medicine; Visit Provider Specialist | DX: G62.9 Polyneuropathy, unspecified (principal); I95.1 Orthostatic hypotension | CPT/HCPCS: 99214 ==

== ENCOUNTER → 2022-10-13 12:35 | Outpatient (BNVA) | payer MEDICARE, OTHER, SELFPAY | PROVIDERS: PCP Family Medicine; Visit Provider Specialist | DX: G60.3 Idiopathic progressive neuropathy (principal); R21 Rash and other nonspecific skin eruption; I95.1 Orthostatic hypotension; E06.3 Autoimmune thyroiditis; G56.03 Carpal tunnel syndrome, bilateral upper limbs; E03.8 Other specified hypothyroidism; K59.00 Constipation, unspecified | CPT/HCPCS: 36415; 84439; 84443; 99213 ==

== ENCOUNTER → 2022-10-19 13:37 | Outpatient (BNVA) | payer MEDICARE, OTHER, SELFPAY | PROVIDERS: PCP Family Medicine; Visit Provider Internal Medicine | DX: E03.8 Other specified hypothyroidism (principal); E06.3 Autoimmune thyroiditis; I95.1 Orthostatic hypotension; Z79.890 Hormone replacement therapy | CPT/HCPCS: 99214 ==

== ENCOUNTER → 2022-11-10 14:50 | Outpatient (BNVA) | payer MEDICARE, OTHER, SELFPAY | PROVIDERS: PCP Family Medicine; Referring Provider Specialist; Visit Provider Dermatology | DX: L40.8 Other psoriasis (principal) | CPT/HCPCS: 17110; 99204 ==

== ENCOUNTER 2022-12-28 14:24 | Outpatient (CLI) | payer MEDICARE, OTHER, SELFPAY ==
[2022-12-28 16:08] LABS: Free T4 Free Thyroxine 1.17 ng/dL (0.82-1.77); Thyroid Stimulating Hormone 0.13 uIU/mL (0.27-4.20)
== END 2022-12-28 14:25 | disposition home or self-care (01) ==
PROVIDERS: PCP Family Medicine; Visit Provider Internal Medicine
DX: G56.03 Carpal tunnel syndrome, bilateral upper limbs (principal); E03.8 Other specified hypothyroidism; E06.3 Autoimmune thyroiditis; I95.1 Orthostatic hypotension; K59.00 Constipation, unspecified
CPT/HCPCS: 84439; 84443

== ENCOUNTER → 2022-12-31 14:25 | Outpatient (BNVA) | payer MEDICARE, OTHER, SELFPAY | PROVIDERS: PCP Family Medicine; Visit Provider Internal Medicine | DX: E03.8 Other specified hypothyroidism (principal); E06.3 Autoimmune thyroiditis; I95.1 Orthostatic hypotension; Z79.890 Hormone replacement therapy | CPT/HCPCS: 99214 ==

== ENCOUNTER 2023-02-08 14:05 | Outpatient (CLI) | payer MEDICARE, OTHER, SELFPAY ==
[2023-02-08 15:22] LABS: Free T4 Free Thyroxine 1.31 ng/dL (0.82-1.77); Thyroid Stimulating Hormone 0.32 uIU/mL (0.27-4.20)
== END 2023-02-08 14:06 | disposition home or self-care (01) ==
PROVIDERS: PCP Family Medicine; Visit Provider Internal Medicine
DX: E03.8 Other specified hypothyroidism (principal); E06.3 Autoimmune thyroiditis; G56.03 Carpal tunnel syndrome, bilateral upper limbs; I95.1 Orthostatic hypotension; K59.00 Constipation, unspecified
CPT/HCPCS: 36415; 84439; 84443

== ENCOUNTER → 2023-02-11 11:32 | Outpatient (BNVA) | payer MEDICARE, OTHER, SELFPAY | PROVIDERS: PCP Family Medicine; Visit Provider Internal Medicine | DX: E03.8 Other specified hypothyroidism; E06.3 Autoimmune thyroiditis; I95.1 Orthostatic hypotension; Z79.890 Hormone replacement therapy | CPT/HCPCS: 99214 ==

== ENCOUNTER → 2023-03-15 13:15 | Outpatient (BNVA) | payer MEDICARE, OTHER, SELFPAY | PROVIDERS: PCP Family Medicine; Visit Provider Dermatology | DX: L40.8 Other psoriasis (principal); L82.0 Inflamed seborrheic keratosis; L57.8 Other skin changes due to chronic exposure to nonionizing radiation | CPT/HCPCS: 11901; 17110; 99214; J3301 ==

== ENCOUNTER → 2023-04-07 12:50 | Outpatient (BNVA) | payer MEDICARE, OTHER, SELFPAY | PROVIDERS: PCP Family Medicine; Visit Provider Specialist | DX: R21 Rash and other nonspecific skin eruption (principal); G62.9 Polyneuropathy, unspecified; R09.02 Hypoxemia; G60.3 Idiopathic progressive neuropathy; I95.1 Orthostatic hypotension; G90.9 Disorder of the autonomic nervous system, unspecified | CPT/HCPCS: 99214 ==

== ENCOUNTER → 2023-04-28 14:32 | Outpatient (BNVA) | payer MEDICARE, OTHER, SELFPAY | PROVIDERS: PCP Family Medicine; Visit Provider Dermatology | DX: L40.8 Other psoriasis (principal); L82.0 Inflamed seborrheic keratosis; L57.0 Actinic keratosis | CPT/HCPCS: 17000; 17110; 99213 ==

== ENCOUNTER 2023-08-12 15:41 | Outpatient (CLI) | payer MEDICARE, OTHER, SELFPAY ==
[2023-08-12 16:48] LABS: Thyroid Stimulating Hormone 0.11 uIU/mL (0.27-4.20)
== END 2023-08-12 15:42 | disposition home or self-care (01) ==
LOC: LAB 15:43
PROVIDERS: PCP Family Medicine; Visit Provider Internal Medicine
DX: G56.03 Carpal tunnel syndrome, bilateral upper limbs (principal); E03.8 Other specified hypothyroidism; E06.3 Autoimmune thyroiditis; E03.9 Hypothyroidism, unspecified
CPT/HCPCS: 36415; 84439; 84443

== ENCOUNTER → 2023-08-16 11:22 | Outpatient (BNVA) | payer MEDICARE, OTHER, SELFPAY | PROVIDERS: PCP Family Medicine; Visit Provider Internal Medicine | DX: G56.03 Carpal tunnel syndrome, bilateral upper limbs (principal); E03.8 Other specified hypothyroidism; E06.3 Autoimmune thyroiditis; I95.1 Orthostatic hypotension; K59.00 Constipation, unspecified; N64.4 Mastodynia; Z79.890 Hormone replacement therapy | CPT/HCPCS: 99214 ==

== ENCOUNTER → 2023-10-05 14:32 | Outpatient (BNVA) | payer MEDICARE, OTHER, SELFPAY | PROVIDERS: PCP Family Medicine; Visit Provider Specialist | DX: G60.3 Idiopathic progressive neuropathy; R21 Rash and other nonspecific skin eruption; R09.02 Hypoxemia; I95.1 Orthostatic hypotension; G90.9 Disorder of the autonomic nervous system, unspecified | CPT/HCPCS: 99214 ==

== ENCOUNTER 2023-10-06 08:03 | Outpatient (CLI) | payer MEDICARE, OTHER, SELFPAY ==
[2023-10-07 11:24] LABS: Alanine Aminotransferase 12 U/L (0-33); Albumin Level 4.7 g/dL (3.5-5.2); Alkaline Phosphatase 82 U/L (35-105); Blood Urea Nitrogen 26 mg/dL (8-23); Calcium 9.6 mg/dL (8.5-10.5); Carbon Dioxide 23 mmol/L (22-29); Chloride 103 mmol/L (98-107); Globulin 2.8 g/dL (1.3-4.6); Glucose 109 mg/dL (65-115); Osmolality Calculated 297 mOsm/kg (285-295); Sodium 141 mmol/L (136-145); Total Bilirubin 0.4 mg/dL (0.15-1.2); Total Protein 7.5 g/dL (6.6-8.7)
[2023-10-07 11:26] LABS: Anion Gap 20.4 (5-19); Aspartate Amino Transferase 21 U/L (0-32); Potassium 5.4 mmol/L (3.5-5.1)
== END 2023-10-06 08:04 | disposition home or self-care (01) ==
LOC: LAB 08:05
PROVIDERS: PCP Family Medicine; Visit Provider Specialist
DX: G90.9 Disorder of the autonomic nervous system, unspecified (principal); I95.1 Orthostatic hypotension
CPT/HCPCS: 80053

== ENCOUNTER 2023-10-06 08:33 | Oncology outpatient (recurring) (ONCR) | payer MEDICARE, OTHER, SELFPAY ==
[2023-10-06 09:12] VITALS: BP 177/104; PULSE 77; RESP 16; TEMP 36.7; O2SAT 98
[2023-10-06 09:14] VITALS: BP 115/81; PULSE 74
[2023-10-06] MEDS: cosyntropin 0.25 mg SDV IVP (09:19)
[2023-10-06 09:55] LABS: Cosyntropin Baseline 14.17 mcg/dL
[2023-10-06 10:29] VITALS: BP 185/99; PULSE 78; RESP 16; O2SAT 98
[2023-10-06 10:50] LABS: Cosyntropin 30 Minute 26.74 mcg/dL
[2023-10-06 11:57] LABS: Cosyntropin 1 Hour 32.26 mcg/dL
== END 2023-10-17 23:59 | disposition home or self-care (01) ==
LOC: ONCMED 08:35
PROVIDERS: PCP Family Medicine; Visit Provider Specialist
DX: I95.1 Orthostatic hypotension (principal); G90.9 Disorder of the autonomic nervous system, unspecified
CPT/HCPCS: 36415; 82533; 96374; J0834

== ENCOUNTER 2023-10-20 12:46 | Outpatient (CLI) | payer MEDICARE, OTHER, SELFPAY ==
[2023-10-20 13:57] LABS: Free T4 Free Thyroxine 0.98 ng/dL (0.82-1.77); Thyroid Stimulating Hormone 2.18 uIU/mL (0.27-4.20)
[2023-10-20 15:01] LABS: Prolactin 11.29 ng/mL (4.8-23.3)
== END 2023-10-20 12:47 | disposition home or self-care (01) ==
LOC: LAB 12:50
PROVIDERS: PCP Family Medicine; Visit Provider Internal Medicine
DX: E03.8 Other specified hypothyroidism (principal); E06.3 Autoimmune thyroiditis
CPT/HCPCS: 36415; 84146; 84439; 84443

== ENCOUNTER → 2023-10-27 09:30 | Outpatient (BNVA) | payer MEDICARE, OTHER, SELFPAY | PROVIDERS: PCP Family Medicine; Visit Provider Internal Medicine | DX: E03.8 Other specified hypothyroidism (principal); E06.3 Autoimmune thyroiditis; I95.1 Orthostatic hypotension; G56.03 Carpal tunnel syndrome, bilateral upper limbs; K59.00 Constipation, unspecified; N64.4 Mastodynia; Z79.890 Hormone replacement therapy | CPT/HCPCS: 99214 ==

== ENCOUNTER → 2023-12-08 15:15 | Outpatient (BNVA) | payer MEDICARE, OTHER, SELFPAY | PROVIDERS: PCP Family Medicine; Visit Provider Specialist | DX: G62.9 Polyneuropathy, unspecified; R09.02 Hypoxemia; R21 Rash and other nonspecific skin eruption; G60.3 Idiopathic progressive neuropathy; I95.1 Orthostatic hypotension; G90.9 Disorder of the autonomic nervous system, unspecified; I27.20 Pulmonary hypertension, unspecified; K22.2 Esophageal obstruction | CPT/HCPCS: 99214 ==

== ENCOUNTER → 2023-12-30 10:20 | Outpatient (BNVA) | payer MEDICARE, OTHER, SELFPAY | PROVIDERS: PCP Family Medicine; Visit Provider Surgery | DX: R13.10 Dysphagia, unspecified (principal) | CPT/HCPCS: 99204 ==

== ENCOUNTER 2024-01-05 09:32 | Day surgery (SDC) | payer MEDICARE, OTHER, SELFPAY ==
--- NOTE | 2024-01-05 02:04 | P.ANESASSM_ITS ---
Pre-Anesthetic Assessment Height/Weight: Height 5 ft 7 in Preop Diagnosis: Dysphagia Operation Date: 01/05/24 10:45 Proposed Procedures p EGD Dilation W/ Balloon 94785, K22.2(Not Applicable) - Elan Quinn DO Social No alcohol Prior smoker Exam alert, oriented x 3, clear to auscultation bilaterally and regular rate & rhythm Airway Submandibular: within normal limits Cervical ROM: within normal limits Mallampati: Class II Dentition: full Anesthetic Plan ASA status: 2 Anesthesia: MAC Other: No prior issues with anesthesia NPO since yesterday History of hypothyroidism, on Synthroid Orthostatic hypotension Echo and 2021 showing EF 59%, PA pressures at that time were 35 Plan for MAC anesthetic Medications/Allergies Home Medications Medication Instructions Recorded Confirmed Last Taken Type albuterol sulfate 90 mcg/actuation 2 puff inhalation Q6H PRN 10/05/23 01/04/24 12/28/23 Rx aerosol inhaler shortness of breath or wheezing #8.5 grams levothyroxine 50 mcg tablet 50 mcg PO DAILY #90 tabs 10/27/23 01/05/24 01/04/24 Rx fludrocortisone 0.1 mg tablet 0.1 mg PO QID #360 tabs 12/08/23 01/05/24 01/05/24 Rx midodrine 10 mg tablet 10 mg PO QID 90 days #360 tabs 12/08/23 01/05/24 01/05/24 Rx betamethasone valerate 0.1 % 1 applic topical DAILY PRN skin 12/10/23 01/04/24 01/03/24 Rx topical cream irritation #45 grams albuterol sulfate 2.5 mg/3 mL 2.5 mg inhalation Q4H PRN 01/04/24 01/04/24 Unknown History (0.083 %) solution for nebulization Shortness Of Breath Or Wheezing duloxetine 20 mg capsule,delayed 20 mg PO DAILY 01/04/24 01/04/24 Unknown History release (Cymbalta) Allergies Allergy/AdvReac Type Severity Reaction Status Date / Time No Known Allergies Allergy Verified 01/04/24 09:01 [facility] Anesthesia Medical History Achalasia Numbness and tingling Depression Lung nodule Hypothyroidism (acquired) Orthostatic hypotension Peripheral neuropathy Ulnar neuropathy of both upper extremities Carpal tunnel syndrome, bilateral upper limbs Surgical History History of tonsillectomy Family History Other CAD (coronary artery disease) Social History Smoking and tobacco/nicotine status: former use of tobacco/nicotine Alcohol intake: never Substance/Drug Use: never Data Anesthesia Cardiac Studies: Echocardiogram 05/15/21
[2024-01-05 09:56] VITALS: BP 180/110; PULSE 76; RESP 18; TEMP 36.5; O2SAT 97; BMI 20.8
[2024-01-05] MEDS: sodium chloride 0.9% 1,000 ML 30 ML IV (10:07)
--- NOTE | 2024-01-05 10:37 | W.PM.OPSUD ---
Surgery/Procedure H&P Update DATE OF PROCEDURE: January 05, 2024 DATE H&P PERFORMED: 12/30/23 H&P UPDATE INFORMATION: I have reviewed H&P completed within last 30 days, I have examined patient prior to procedure and No changes to prior documentation PREOP DIAGNOSIS: Dysphagia PLANNED PROCEDURE: Operation Date: 01/05/24 10:45 Proposed Procedures p EGD Dilation W/ Balloon 64715, K22.2(Not Applicable) - Elan Quinn DO
[2024-01-05 10:58] VITALS: BP 175/91; PULSE 50; RESP 16; TEMP 36.2; O2SAT 100
[2024-01-05 11:26] VITALS: BP 106/72; PULSE 57; RESP 18; O2SAT 100
--- NOTE | 2024-01-05 11:57 | ANE.PACU2 ---
Inpatient post-anesthesia follow up: Airway intact: Yes Vital signs: Temperature 97.1 F Pulse Rate 57 Respiratory Rate 18 Blood Pressure 106/72 Pulse Oximetry 100 Oxygen Delivery Me thod Room Air Oxygen Flow Rate Fraction of Inspir ed Oxygen Hydration adequate: Yes Nausea and vomiting: No Pain level: 1 Mental status: Baseline
== END 2024-01-05 11:57 | disposition home or self-care (01) ==
PROVIDERS: PCP Family Medicine; Visit Provider Surgery
DX: R13.10 Dysphagia, unspecified (principal); K22.2 Esophageal obstruction; E03.9 Hypothyroidism, unspecified; F17.200 Nicotine dependence, unspecified, uncomplicated
CPT/HCPCS: 43239; 43249; 88305; J2704; J7030

== ENCOUNTER 2024-01-05 14:04 | Outpatient (CLI) | payer MEDICARE, OTHER, SELFPAY ==
--- NOTE | 2024-01-05 14:30 | USCV_ITS ---
Ayon Keira Age: 73 Gender: F : 1950 Exam Date: 01/05/2024 14:35 Ordering Phys: Roya Moss MD Technologist: Exam Location: [facility] [place] Indication: cp murmur BP: 100 / 65 HR: 102 Rhythm: Sinus Technical Quality: Adequate MEASUREMENTS (Male / Female) Normal Values 2D ECHO LV Diastolic Diameter PLAX 3.9 cm 4.2 - 5.9 / 3.9 - 5.3 cm IVS Diastolic Thickness 1.3 cm 0.6 - 1.0 / 0.6 - 0.9 cm IVS Systolic Thickness 1.7 cm LVPW Diastolic Thickness 1.2 cm 0.6 - 1.0 / 0.6 - 0.9 cm LVPW Systolic Thickness 1.4 cm LVOT Diameter 2.1 cm LV Ejection Fraction 2D Teich 63.3 % LV Ejection Fraction MOD 4C 54.2 % LV Ejection Fraction MOD 2C 73.2 % LV Ejection Fraction 2C AL 73.1 % LA Diameter 3.9 cm RA Systolic Volume 4C AL 33.2 ml RA Systolic Volume 4C MOD 33.0 ml Aorta at Sinotubular Diameter 3.1 cm IVC Diameter 1.9 cm M-MODE LA Ao Ratio MM 1.3 AV Cusp Separation MM 2.1 cm DOPPLER AV Peak Velocity 93.0 cm/s LVOT Peak Velocity 67.0 cm/s AV Area Cont Eq vti 2.5 cm squared AV Area Cont Eq pk 2.4 cm squared MV Peak Velocity 95.0 cm/s TV Peak Velocity 256.0 cm/s TR Peak Velocity 312.0 cm/s TR Peak Gradient 38.9 mmHg TV Peak E Velocity 101.0 cm/s Right Atrial Pressure 3.0 mmHg Pulmonary Artery Systolic Pressu 41.9 mmHg FINDINGS Left Ventricle Left ventricle is normal in size. LV systolic function is normal with EF of 60 to 65%. No regional wall motion abnormalities are seen. Right Ventricle Normal in size and function Right Atrium Normal in size Left Atrium Normal in size Mitral Valve Structurally normal mitral valve. Mild to moderate mitral regurgitation. Aortic Valve Aortic valve is thickened. Mild aortic regurgitation. Tricuspid Valve Mild tricuspid regurgitation. RVSP is 40 to 45 mmHg. This is consistent with mild pulmonary hypertension. Pulmonic Valve Not well visualized Pericardium Normal Aorta Normal in size IVC Appears to be normal. CONCLUSIONS LV systolic function is normal with EF of 60 to 65%. Mild to moderate mitral regurgitation Mild aortic regurgitation Mild tricuspid regurgitation Mild pulmonary hypertension Compared to prior echocardiogram from 2021, no significant changes are seen. Vincent Velarde MD (Electronically Signed) Final Date: 06 January 2024 08:32 S
== END 2024-01-05 14:05 | disposition home or self-care (01) ==
LOC: RAD 14:05
PROVIDERS: PCP Family Medicine; Visit Provider Specialist
DX: I34.0 Nonrheumatic mitral (valve) insufficiency (principal); I27.20 Pulmonary hypertension, unspecified; I95.1 Orthostatic hypotension
CPT/HCPCS: 93306

== ENCOUNTER → 2024-01-27 10:55 | Outpatient (BNVA) | payer MEDICARE, OTHER, SELFPAY | PROVIDERS: PCP Family Medicine; Visit Provider Surgery | DX: Z09 Encounter for follow-up examination after completed treatment for conditions other than malignant neoplasm (principal); R13.10 Dysphagia, unspecified; K22.2 Esophageal obstruction | CPT/HCPCS: 99214 ==

== ENCOUNTER → 2024-04-10 12:22 | Outpatient (BNVA) | payer MEDICARE, OTHER, SELFPAY | PROVIDERS: PCP Family Medicine; Visit Provider Specialist | DX: R21 Rash and other nonspecific skin eruption (principal); G62.9 Polyneuropathy, unspecified; R09.02 Hypoxemia; G60.3 Idiopathic progressive neuropathy; I95.1 Orthostatic hypotension; G90.9 Disorder of the autonomic nervous system, unspecified; I27.20 Pulmonary hypertension, unspecified; K22.2 Esophageal obstruction | CPT/HCPCS: 99214 ==

== ENCOUNTER 2024-04-24 14:52 | Outpatient (CLI) | payer MEDICARE, OTHER, SELFPAY ==
[2024-04-24 15:41] LABS: Free T4 Free Thyroxine 1.03 ng/dL (0.82-1.77); Thyroid Stimulating Hormone 9.29 uIU/mL (0.27-4.20)
== END 2024-04-24 14:53 | disposition home or self-care (01) ==
PROVIDERS: PCP Family Medicine; Visit Provider Internal Medicine
DX: G56.03 Carpal tunnel syndrome, bilateral upper limbs (principal); E03.8 Other specified hypothyroidism; E06.3 Autoimmune thyroiditis; I95.1 Orthostatic hypotension
CPT/HCPCS: 36415; 83516; 84439; 84443

== ENCOUNTER → 2024-04-26 10:58 | Outpatient (BNVA) | payer MEDICARE, OTHER, SELFPAY | PROVIDERS: PCP Family Medicine; Visit Provider Internal Medicine | DX: E03.8 Other specified hypothyroidism (principal); E06.3 Autoimmune thyroiditis; I95.1 Orthostatic hypotension; K59.00 Constipation, unspecified; N64.4 Mastodynia | CPT/HCPCS: 99214 ==

== ENCOUNTER → 2024-05-02 08:10 | Outpatient (BNVA) | payer MEDICARE, OTHER, SELFPAY | PROVIDERS: PCP Family Medicine; Visit Provider Nurse Practitioner Family | DX: L40.8 Other psoriasis (principal); L29.89 Other pruritus; L72.0 Epidermal cyst; L82.1 Other seborrheic keratosis; L81.4 Other melanin hyperpigmentation; L57.8 Other skin changes due to chronic exposure to nonionizing radiation; L82.0 Inflamed seborrheic keratosis; Z78.9 Other specified health status; R20.8 Other disturbances of skin sensation; L57.0 Actinic keratosis | CPT/HCPCS: 17000; 17110; 99214 ==

== ENCOUNTER → 2024-06-12 12:55 | Outpatient (BNVA) | payer MEDICARE, OTHER, SELFPAY | PROVIDERS: PCP Family Medicine; Visit Provider Dermatology | DX: L72.0 Epidermal cyst (principal); D48.5 Neoplasm of uncertain behavior of skin; R20.8 Other disturbances of skin sensation; R23.8 Other skin changes; L53.8 Other specified erythematous conditions; L40.8 Other psoriasis; L29.89 Other pruritus | CPT/HCPCS: 11404; 11901; 12032; 99213 ==

== ENCOUNTER 2024-06-16 14:05 | Outpatient (CLI) | payer MEDICARE, OTHER, SELFPAY ==
[2024-06-16 15:12] LABS: Free T4 Free Thyroxine 0.91 ng/dL (0.82-1.77); Thyroid Stimulating Hormone 6.21 uIU/mL (0.27-4.20)
== END 2024-06-16 14:06 | disposition home or self-care (01) ==
LOC: LAB 14:08
PROVIDERS: PCP Family Medicine; Visit Provider Internal Medicine
DX: G56.03 Carpal tunnel syndrome, bilateral upper limbs (principal)
CPT/HCPCS: 36415; 84439; 84443

== ENCOUNTER → 2024-06-22 11:01 | Outpatient (BNVA) | payer MEDICARE, OTHER, SELFPAY | PROVIDERS: PCP Family Medicine; Visit Provider Internal Medicine | DX: E03.8 Other specified hypothyroidism (principal); E06.3 Autoimmune thyroiditis; I95.1 Orthostatic hypotension; K59.00 Constipation, unspecified; N64.4 Mastodynia | CPT/HCPCS: 99214 ==

== ENCOUNTER → 2024-08-10 15:08 | Outpatient (BNVA) | payer MEDICARE, OTHER, SELFPAY | PROVIDERS: PCP Family Medicine; Visit Provider Dermatology | DX: L40.0 Psoriasis vulgaris (principal); L40.59 Other psoriatic arthropathy; L82.0 Inflamed seborrheic keratosis; L40.8 Other psoriasis; L29.89 Other pruritus | CPT/HCPCS: 11901; 17110; 99214 ==

== ENCOUNTER 2024-09-14 13:54 | Outpatient (CLI) | payer MEDICARE, OTHER, SELFPAY ==
[2024-09-14 14:33] LABS: Basophils # 0.1 10^3/uL (0.0-0.1); Eosinophils # 0.2 10^3/uL (0.0-0.8); Hematocrit 33.8 % (36-47); Lymphocytes # 1.2 10^3/uL (0.8-4.8); Lymphocytes % 24.6 %; Mean Corpuscular HGB Conc 31.4 g/dL (30-55); Mean Corpuscular Hemoglobin 30.4 pg (27-33); Mean Corpuscular Volume 96.8 fl (85-98); Mean Platelet Volume 10.3 fL (7.4-10.4); Monocytes # 0.3 10^3/uL (0.2-0.9); Monocytes % 6.8 %; Neutrophils % 62.2 %; Nucleated Red Blood Cells % 0 %; Platelet Count 194 10^3/cmm (157-399); Red Blood Count 3.49 10^6/uL (3.85-5.65); Red Cell Distribution Width 12.7 % (12.1-15.1); White Blood Count 4.83 10^3/uL (3.29-11.43)
[2024-09-14 15:07] LABS: Free T4 Free Thyroxine 1.14 ng/dL (0.82-1.77); Thyroid Stimulating Hormone 1.65 uIU/mL (0.27-4.20)
[2024-09-14 15:34] LABS: Alanine Aminotransferase 15 U/L (0-33); Albumin Level 4.7 g/dL (3.5-5.2); Alkaline Phosphatase 57 U/L (35-105); Anion Gap 26.5 (5-19); Aspartate Amino Transferase 25 U/L (0-32); Blood Urea Nitrogen 62 mg/dL (8-23); Carbon Dioxide 15 mmol/L (22-29); Chloride 98 mmol/L (98-107); Globulin 3.2 g/dL (1.3-4.6); Glucose 104 mg/dL (65-115); Osmolality Calculated 298 mOsm/kg (285-295); Potassium 4.5 mmol/L (3.5-5.1); Sodium 135 mmol/L (136-145); Total Bilirubin 0.5 mg/dL (0.15-1.2); Total Protein 7.9 g/dL (6.6-8.7)
[2024-09-14 15:47] LABS: Hepatitis A Antibody IgM Non-Reactive (Nonreactive); Hepatitis B Core AB, Total Non-Reactive (Nonreactive); Hepatitis B Surface AB < 3.5 (11.5-1000); Hepatitis B Surface Antigen Non-Reactive (Nonreactive); Hepatitis C Virus Antibody Non-Reactive (Nonreactive)
[2024-09-14 15:49] LABS: HIV 1 & 2 Antibody Non-Reactive (Non-Reactiv); HIV 1 & 2 Antigen Non-Reactive (Non-Reactiv)
== END 2024-09-14 13:55 | disposition home or self-care (01) ==
PROVIDERS: Dermatology; PCP Family Medicine; Visit Provider Internal Medicine
DX: L40.0 Psoriasis vulgaris (principal); E03.8 Other specified hypothyroidism; E06.3 Autoimmune thyroiditis
CPT/HCPCS: 36415; 80053; 84439; 84443; 85025; 86480; 86705; 86706; 86709; 86803; 87340; 87806

== ENCOUNTER → 2024-10-03 10:40 | Outpatient (BNVA) | payer MEDICARE, OTHER, SELFPAY | PROVIDERS: PCP Family Medicine; Visit Provider Family Medicine | DX: E86.0 Dehydration (principal); R13.10 Dysphagia, unspecified | CPT/HCPCS: 80053 ==

== ENCOUNTER → 2024-11-20 10:39 | Outpatient (BNVA) | payer MEDICARE, OTHER, SELFPAY | PROVIDERS: PCP Family Medicine; Visit Provider Specialist | DX: G60.3 Idiopathic progressive neuropathy (principal); I95.1 Orthostatic hypotension; G90.9 Disorder of the autonomic nervous system, unspecified; I27.20 Pulmonary hypertension, unspecified; K22.2 Esophageal obstruction | CPT/HCPCS: 99214 ==

== ENCOUNTER → 2025-01-03 11:53 | Outpatient (BNVA) | payer MEDICARE, OTHER, SELFPAY | PROVIDERS: PCP Family Medicine; Visit Provider Internal Medicine | DX: E03.8 Other specified hypothyroidism (principal); E06.3 Autoimmune thyroiditis; I95.1 Orthostatic hypotension; K59.00 Constipation, unspecified; N64.4 Mastodynia | CPT/HCPCS: 99214 ==

== ENCOUNTER 2025-02-07 14:09 | Outpatient (CLI) | payer MEDICARE, OTHER, SELFPAY ==
[2025-02-07 15:15] LABS: Free T4 Free Thyroxine 0.91 ng/dL (0.82-1.77); Thyroid Stimulating Hormone 7.29 uIU/mL (0.27-4.20)
== END 2025-02-07 14:10 | disposition home or self-care (01) ==
LOC: LAB 14:12
PROVIDERS: PCP Family Medicine; Visit Provider Internal Medicine
DX: G56.03 Carpal tunnel syndrome, bilateral upper limbs (principal)
CPT/HCPCS: 36415; 84439; 84443